=== PATIENT | female | born 1945 | race Caucasian/White ===

== ENCOUNTER 2023-05-19 09:12 | Inpatient (IN) | payer MEDICARE ==
[~2023-05-19] VITALS: Ht 167.7 cm; Wt 61.0 kg
[2023-05-19] VITALS (12 sets, daily range): BP systolic 86–155; BP diastolic 54–81
--- NOTE | 2023-05-19 09:22 | ED Lower Extremity ---
General Chief Complaint: Lower Extremity Stated Complaint: LT LEG PAIN Source: patient Exam Limitations: no limitations History of Present Illness Date Seen by Provider: May 19, 2023 Time Seen by Provider: 09:22 Initial Comments Patient is a 78-year-old female who presents to the emergency room with a chief complaint of left leg pain. She resides at a local snf, [facility]. She had a fall, apparently that was witnessed on Friday, 3 days ago. She is normally ambulatory without a walker. Since the fall she has not wanted to ambulate at all and has been in a wheelchair. She has been complaining of progressively worsening pain to the left hip. The patient has a history, likely due to her exam of some dementia. She is on olanzapine and sertraline. She cannot elucidate the details of the fall or if she has fallen anymore in the last 2 days. She denies chest pain, shortness of breath. She states she did not hit her head. She has no neck pain. She denies abdominal pain, nausea. She states the pain radiates into her buttocks. Denies numbness or tingling to the left leg. Onset: other (3d ago) Severity: moderate Pain/Injury Location: left hip Method of Injury: fell Modifying Factors: Improves With Immobilization; Worse With Movement Allergies and Home Medications Allergies Coded Allergies: hornet venom (Verified Allergy, Unknown, 05/19/23) mustard (Verified Allergy, Unknown, 05/19/23) yellow dye (Verified Allergy, Unknown, 05/19/23) Patient Home Medication List Home Medication List Reviewed: Yes Review of Systems Constitutional: see HPI EENTM: no symptoms reported Respiratory: no symptoms reported Cardiovascular: no symptoms reported Gastrointestinal: no symptoms reported Genitourinary: no symptoms reported Musculoskeletal: joint pain (left hip) Skin: no symptoms reported Psychiatric/Neurological: No Symptoms Reported All Other Systems Reviewed Negative Unless Noted: Yes Past Aygmjlb-Thzwir-Rbmdpl Hx Patient Social History Tobacco Use?: No Substance use?: No Alcohol Use?: No Physical Exam Vital Signs Vital Signs - First Documented 05/19/23 09:15 Temp 38.4 Pulse 107 B/P (MAP) 166/109 (128) Pulse Ox 94 O2 Delivery Room Air Capillary Refill : Height, Weight, BMI Height: '" Weight: lbs. oz. kg; BMI Method: General Appearance: WD/WN, no apparent distress HEENT: PERRL/EOMI, other (moist mucous membranes) Cardiovascular: regular rate, rhythm Respiratory: lungs clear, normal breath sounds, no respiratory distress, no accessory muscle use Gastrointestinal: normal bowel sounds, soft Hips: bilateral hip non-tender, bilateral hip normal inspection; right hip normal range of motion; bilateral hip bone tenderness; left hip limited range of motion, left hip pain Legs: bilateral leg non-tender, bilateral leg normal inspection, bilateral leg no evidence of injury Knees: bilateral knee non-tender, bilateral knee normal inspection, bilateral knee no evidence of injury Ankles: bilateral ankle non-tender, bilateral ankle normal inspection, bilateral ankle normal range of motion, bilateral ankle no evidence of injury Feet: bilateral foot non-tender, bilateral foot normal inspection, bilateral foot no evidence of injury Neurologic/Tendon: normal sensation, normal motor functions Neurologic/Psychiatric: alert, normal mood/affect Skin: normal color, warm/dry Progress/Results/Core Measures Results/Orders Lab Results Laboratory Tests Test 05/19/23 10:00 Range/Units White Blood Count 8.4 4.3-11.0 10^3/uL Red Blood Count 4.52 3.80-5.11 10^6/uL Hemoglobin 13.2 11.5-16.0 g/dL Hematocrit 40 35-52 % Mean Corpuscular Volume 89 80-99 fL Mean Corpuscular Hemoglobin 29 25-34 pg Mean Corpuscular Hemoglobin Concent 33 32-36 g/dL Red Cell Distribution Width 14.9 H 10.0-14.5 % Platelet Count 230 130-400 10^3/uL Mean Platelet Volume 10.0 9.0-12.2 fL Immature Granulocyte % (Auto) 1 % Neutrophils (%) (Auto) 72 42-75 % Lymphocytes (%) (Auto) 14 12-44 % Monocytes (%) (Auto) 11 0-12 % Eosinophils (%) (Auto) 2 0-10 % Basophils (%) (Auto) 0 0-10 % Neutrophils # (Auto) 6.1 1.8-7.8 10^3/uL Lymphocytes # (Auto) 1.2 1.0-4.0 10^3/uL Monocytes # (Auto) 0.9 0.0-1.0 10^3/uL Eosinophils # (Auto) 0.2 0.0-0.3 10^3/uL Basophils # (Auto) 0.0 0.0-0.1 10^3/uL Immature Granulocyte # (Auto) 0.0 0.0-0.1 10^3/uL Sodium Level 141 135-145 MMOL/L Potassium Level 3.4 L 3.6-5.0 MMOL/L Chloride Level 109 H 98-107 MMOL/L Carbon Dioxide Level 19 L 21-32 MMOL/L Anion Gap 13 5-14 MMOL/L Blood Urea Nitrogen 12 7-18 MG/DL Creatinine 0.75 0.60-1.30 MG/DL Estimat Glomerular Filtration Rate 81 BUN/Creatinine Ratio 16 Glucose Level 114 H 70-105 MG/DL Calcium Level 9.2 8.5-10.1 MG/DL My Orders Orders - JOSE TIDWELL MD Pelvis With Left Hip 2-3 Views (05/19/23 09:30) Ed Iv/Invasive Line Start (05/19/23 09:43) Cbc And Automated Diff (05/19/23 09:43) Basic Metabolic Panel (05/19/23 09:43) Chest 1 View, Ap/Pa Only (05/19/23 09:43) Ekg Tracing (05/19/23 09:43) Ed Admission (Communication) (05/19/23 11:06) Catheter(Urinary) Insert & Ass 03,15 (05/19/23 11:11) Vital Signs/I&O 05/19/23 05/19/23 09:15 11:05 Temp 38.4 Pulse 107 99 B/P (MAP) 166/109 (128) 155/92 Pulse Ox 94 96 O2 Delivery Room Air Room Air Progress Progress Note : Time: 11:09 Progress Note Patient seen and evaluated by me. Eval today includes physical exam, xrays of the pelvis and left hip. After identification of left femoral neck fracture - additionally basic labs- CBC, BMP ordered, with single view CXR and EKG ordered to assist in pre-operative evaluation. Pertinent physical exam findings - elderly female, pleasantly confused, with stable VS. Only significant finding - tenderness to palpation of left hip at about the greated trochanter with limited ROM as far as flexion at the hip koint - she did not tolerate this due to pain in the left hip. No obvious erythema, rashes, swelling noted to the left leg. Distal pulses and sensation intact to the LLE. ddx includes pelvic fracture/hip fracture Labs, imaging independently reviewed and interpreted by me. Patient had normal CBC, BMP pertinent for minimall low potassium at 3.4 with a low CO2 at 19 - otherwise WNL. Her EKG showed normal sinus rhythm without ST change. Pelvis and Left hip xrays - showed isolated left femoral neck fracture. Her CX was unremarkable. Case was discussed with Dr Woods (whom I initially thought was the patient's primary provider - who accepted patient for admission to the med/surg floor. I also discussed the case with Dr Yi on for Ortho surgery who will consult. I did also speak with the patient's niece who is her DPOA and lives in [place], [place]. 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 I explained that that would not be possible due to the distance of travel and lack of available resources to take an ambulance out of community health (with our limited EMS) as well as the patient was not a candidate for air travel. Her niece then inquired about the possibility of POV transport and I was emphatic that this would not be a safe option for transport. Her n iece then stated that she would travel to us. Initial ECG Impression Date: May 19, 2023 Initial ECG Impression Time: 10:12 Initial ECG Rate: 90 Initial ECG Rhythm: Normal Sinus Initial ECG Intervals: Normal Initial ECG Impression: Normal Diagnostic Imaging Diagonstic Imaging: Xray Comments Pelvis and left hip x-raysindependently reviewed and interpreted by me, left femoral neck fracture, nondisplaced Diagonstic Imaging: Xray Plain Films/CT/US/NM/MRI: chest Comments [facility] [place], [place] NAME: JACKI PEREZ [facility] REC#: [id number] PT STATUS: ADM IN : 1945 PHYSICIAN: JOSE TIDWELL MD ADMIT DATE: 05/19/23 Signed Date of Exam:05/19/23 CHEST 1 VIEW, AP/PA ONLY HISTORY: Hip fracture. Preoperative evaluation of cardiac and pulmonary structures prior to administration of anesthesia. COMPARISON: None TECHNIQUE: Frontal view of the chest. FINDINGS: Lung volumes are normal. No consolidation is seen. There is no pleural effusion or pneumothorax. The cardiac silhouette is normal in size. IMPRESSION:. No acute pulmonary abnormality. Dictated by: Dictated on workstation # [id number] Dict: 05/19/23 1016 Trans: 05/19/23 1307 CV [id number] Interpreted by: DANIEL DWYER MD Electronically signed by: DANIEL DWYER MD 05/19/23 1307 Departure Communication (Admissions) Time/Spoke to Admitting Phy: 10:[address] Woods - hospitalist, In patient to med surg; she will do que'd orders Time/Spoke to Consulting Phy: 11:[address] Yi - Orthopedics Impression Primary Impression: Fracture of femoral neck, left Qualified Codes: S72.002A - Fracture of unspecified part of neck of left femur, initial encounter for closed fracture Disposition: ADMITTED INPATIENT Condition: Stable Admissions Decision to Admit Reason: Admit from ER (Trauma) Decision to Admit/Date: May 19, 2023 Time/Decision to Admit Time: 11:08 Departure-Patient Inst. Referrals: NO,LOCAL PHYSICIAN (PCP/Family) Primary Care Physician JOSE TIDWELL MD May 19, 2023 09:22
[2023-05-19 10:10] LABS: BASOPHILS % (AUTO) 0 % (0-10); EOSINOPHILS # (AUTO) 0.2 10^3/uL (0.0-0.3); EOSINOPHILS % (AUTO) 2 % (0-10); HEMATOCRIT 40 % (35-52); HEMOGLOBIN 13.2 g/dL (11.5-16.0); LYMPHOCYTES # (AUTO) 1.2 10^3/uL (1.0-4.0); LYMPHOCYTES % (AUTO) 14 % (12-44); MEAN CORPUSCULAR HEMOGLOBIN 29 pg (25-34); MEAN CORPUSCULAR HGB CONC 33 g/dL (32-36); MEAN CORPUSCULAR VOLUME 89 fL (80-99); MONOCYTES # (AUTO) 0.9 10^3/uL (0.0-1.0); MONOCYTES % (AUTO) 11 % (0-12); NEUTROPHILS # (AUTO) 6.1 10^3/uL (1.8-7.8); NEUTROPHILS % (AUTO) 72 % (42-75); PLATELET COUNT 230 10^3/uL (130-400); WHITE BLOOD COUNT 8.4 10^3/uL (4.3-11.0)
--- NOTE | 2023-05-19 10:18 | Diagnostic Imaging Report ---
HISTORY: Hip fracture. Preoperative evaluation of cardiac and pulmonary structures prior to administration of anesthesia. COMPARISON: None TECHNIQUE: Frontal view of the chest. FINDINGS: Lung volumes are normal. No consolidation is seen. There is no pleural effusion or pneumothorax. The cardiac silhouette is normal in size. IMPRESSION:. No acute pulmonary abnormality. Dictated by: Dictated on workstation # [id number]
--- NOTE | 2023-05-19 10:19 | Diagnostic Imaging Report ---
HISTORY: Fall, left hip pain. TECHNIQUE: Frontal view of the pelvis. Frontal and lateral views of the left hip. COMPARISON: None. FINDINGS: There is a transverse fracture through the left femoral neck with superior, lateral, and mild anterior displacement. The femoral head is well aligned. No acute fracture is seen in the right hip. Bone density is diffusely low. No other fractures are seen. IMPRESSION: Moderately displaced left femoral neck fracture. Dictated by: Dictated on workstation # [id number]
[2023-05-19 10:24] LABS: POTASSIUM 3.4 MMOL/L (3.6-5.0)
[2023-05-19 10:25] LABS: CALCIUM 9.2 MG/DL (8.5-10.1)
[2023-05-19 10:30] LABS: CREATININE SERUM 0.75 MG/DL (0.60-1.30)
--- NOTE | 2023-05-19 10:32 | History & Physical ---
History of Present Illness HPI/Chief Complaint Chief complaint: Left hip fracture HPI: This is a 78-year-old female known to me from [facility] psych unit in 07/11 who [facility] who suffered a left hip fracture and a fall at home. She is n.p.o. and will have repair today. She reports no pain as long as she does not move. Source: patient, family Exam Limitations: no limitations Date Seen 05/19/23 Time Seen by a Provider: 10:00 Attending Physician Allison Woods DO PCP Admitting Physician: Attending Physician: Referring Physician Date of Admission Home Medications & Allergies Home Medications Reviewed patient Home Medication Reconciliation performed by pharmacy medication reconciliations certified bench jeweler technician and/or nursing. Patients Allergies have been reviewed. Allergies Allergies Coded Allergies hornet venom (Verified Allergy, Unknown, 05/19/23) mustard (Verified Allergy, Unknown, 05/19/23) yellow dye (Verified Allergy, Unknown, 05/19/23) Past Nlheugf-Rdyena-Mnedlm Hx Past Med/Social Hx: Reviewed Nursing Past Med/Soc Hx, Reviewed and Corrections made Patient Social History Marrital Status: single Employed/Student: retired Alcohol Use: Denies Use Smoking Status: Unknown if Ever Smoked Past Medical History Neurological: Dementia Psychosocial: Depression Review of Systems Constitutional: see HPI Musculoskeletal: joint pain Physical Exam Physical Exam Vital Signs Vital Signs - First Documented 05/19/23 05/19/23 09:15 11:35 Temp 38.4 Pulse 107 Resp 18 B/P (MAP) 166/109 (128) Pulse Ox 94 O2 Delivery Room Air Capillary Refill : Height, Weight, BMI Height: '" Weight: lbs. oz. kg; 22.00 BMI Method: General Appearance: No Apparent Distress, WD/WN, Chronically ill Respiratory: Lungs Clear, Normal Breath Sounds Cardiovascular: Regular Rate, Rhythm, No Edema Extremity: Normal Range of Motion (Except left leg) Neurologic/Psychiatric: Alert, Depressed Affect, Disoriented Results Results/Procedures Labs Laboratory Tests 05/19/23 10:00 Patient resulted labs reviewed. Assessment/Plan Admission Diagnosis Assessment: Left femur fracture Dementia Depression Advanced age Plan: Proceed on with femur fracture repair since benefits outweigh risks Admission Status: Inpatient Order (span 2 midnights) Reason for Inpatient Admission: Hip fracture ALLISON WOODS DO May 19, 2023 10:32
[2023-05-19] MEDS ORDERED: CALCIUM CARBONATE 500 MG CHEW TABLET PO PRN (12:30)
[2023-05-19] MEDS ORDERED: MELATONIN 3 MG TABLET PO PRN (12:30)
[2023-05-19] MEDS ORDERED: MILK OF MAGNESIA 400 MG/5 ML 30 ML UDC PO PRN (12:30)
[2023-05-19] MEDS ORDERED: BISACODYL 10 MG SUPPOSITORY PR PRN (12:30)
[2023-05-19] MEDS ORDERED: ANTACID SUSPENSION 30 ML UDC PO PRN (12:30)
[2023-05-19] MEDS ORDERED: ONDANSETRON 4 MG ORAL DISSOLVE TABLET PO PRN (12:30)
[2023-05-19] MEDS ORDERED: LACTULOSE SYRUP 10GM/15ML 30ML UDC PO PRN (12:30)
[2023-05-19] MEDS ORDERED: diphenhydrAMINE INJ 50 MG/ML VIAL IVP PRN (12:30)
[2023-05-19] MEDS ORDERED: hydrALAZINE INJECTION 20 MG/ML VIAL IV PRN (12:30)
[2023-05-19] MEDS ORDERED: LIDOCAINE UROJET 2% GEL 10 ML PKG TOP ONE (12:30)
[2023-05-19] MEDS ORDERED: ONDANSETRON INJECTION 4 MG/2 ML (SDV) IV PRN (12:30)
[2023-05-19] MEDS ORDERED: HYDROmorphone INJECTION 2 MG/ML VIAL IV PRN (12:30)
[2023-05-19] MEDS ORDERED: diphenhydrAMINE 25 MG TABLET PO PRN (12:30)
[2023-05-19] MEDS ORDERED: LACTATED RINGERS 1,000 ML 1,000 ML IV PRN (13:00)
[2023-05-19] MEDS ORDERED: ONDANSETRON INJECTION 4 MG/2 ML (SDV) ONE (13:20)
[2023-05-19] MEDS ORDERED: SEVOFLURANE (ULTANE) 15 ML INHAL SOLN ONE (13:20)
[2023-05-19] MEDS ORDERED: proPOfol INJECTION 200 MG/20 ML VIAL IV ONE (13:20)
[2023-05-19] MEDS ORDERED: fentaNYL INJECTION 100 MCG/2 ML VIAL ONE ×2 (13:20→15:01)
--- NOTE | 2023-05-19 13:26 | Consultation - Ortho ---
Consult - Ortho Subjective Date of Exam 05/19/23 Chief Complaint Left Hip Injury HPI/Events since last exam sustained fall last Friday, had been ambulatory prior to fall and then began using wheelchair, had increasing pain, brought to ER and eval demonstrated displaced femoral neck fracture, I was asked to treat the fracture Medical, Surgical History see admit Social History see admit Family History see admit Review of Systems - Allergies: Coded Allergies: hornet venom (Verified Allergy, Unknown, 05/19/23) mustard (Verified Allergy, Unknown, 05/19/23) yellow dye (Verified Allergy, Unknown, 05/19/23) Objective Exam Left Leg: shortened, externally rotated, sensation grossly intact to light touch, pulses palpable Vital Signs Vital Signs Date Time Temp Pulse Resp B/P (MAP) Pulse Ox O2 Delivery O2 Flow Rate FiO2 05/19/23 11:35 36.9 88 18 155/77 (103) Room Air 05/19/23 11:05 99 155/92 96 Room Air 05/19/23 09:15 38.4 107 166/109 (128) 94 Room Air Lab Results Laboratory Tests 05/19/23 10:00: White Blood Count 8.4, Red Blood Count 4.52, Hemoglobin 13.2, Hematocrit 40, Mean Corpuscular Volume 89, Mean Corpuscular Hemoglobin 29, Mean Corpuscular Hemoglobin Concent 33, Red Cell Distribution Width 14.9H, Platelet Count 230, Mean Platelet Volume 10.0, Immature Granulocyte % (Auto) 1, Neutrophils (%) (Auto) 72, Lymphocytes (%) (Auto) 14, Monocytes (%) (Auto) 11, Eosinophils (%) (Auto) 2, Basophils (%) (Auto) 0, Neutrophils # (Auto) 6.1, Lymphocytes # (Auto) 1.2, Monocytes # (Auto) 0.9, Eosinophils # (Auto) 0.2, Basophils # (Auto) 0.0, Immature Granulocyte # (Auto) 0.0, Sodium Level 141, Potassium Level 3.4L, Chloride Level 109H, Carbon Dioxide Level 19L, Anion Gap 13, Blood Urea Nitrogen 12, Creatinine 0.75, Estimat Glomerular Filtration Rate 81, BUN/Creatinine Ratio 16, Glucose Level 114H, Calcium Level 9.2 Assessment and Plan Assessment Displaced Left Femoral Neck Fracture Problem List Displaced Left Femoral Neck Fracture Plan I have recommended proceeding with prosthetic replacement of the left femoral neck fracture. Nature of the procedure and the postoperative course were discussed with DPOA and son. Questions were answered and consent was obtained. Will plan to proceed today. Final Diagonsis Displaced Left Femoral Neck Fracture Level of the visit: Level 3 CAROLINA MATHUR MD May 19, 2023 13:26
[2023-05-19] MEDS ORDERED: ceFAZolin INJECTION 2,000 MG ONE (13:27)
[2023-05-19] MEDS ORDERED: ceFAZolin 1,000 MG VIAL IV ONE (13:30)
[2023-05-19] MEDS ORDERED: TRANEXAMIC ACID 100 MG/ML 10 ML INJECTION ONE (13:45)
[2023-05-19] MEDS ORDERED: ceFAZolin INJECTION 2,000 MG in NS (IVPB) 50 ML 50 ML IV NR (14:00)
--- NOTE | 2023-05-19 15:31 | Operative Report - Ortho ---
Operative Report Surgeon (s)/Quality Control Representative (s) Surgeon CAROLINA MATHUR MD Quality Control Representative n/a Pre-Operative Diagnosis Displaced Left Femoral Neck Fracture Post-Operative Diagnosis same Operative Report Date of Procedure: May 19, 2023 Name of Procedure Performed: Prosthetic Replacement of Left Femoral Neck Fracture Description & Findings After obtaining informed consent and marking the patient, patient did receive IV antibiotics. Patient was taken to the operating room and anesthesia was induced. Patient was placed in the lateral decubitus position with the left side up. Left lower extremity was prepped and draped in the usual sterile fashion. Surgical timeout was taken. A posterolateral approach was utilized. External rotators and capsule were taken down in one layer. Fracture hematoma was evacuated. Femoral head was removed from the acetabulum and sized. The fracture site on the femoral neck was freshened with a saw. A 43 mm bipolar component was trialed and found to have good fit. Attention was turned to the femur, Cashier Live cutter osteotome was used to remove the remainder of the femoral neck near the greater trochanter. Canal finder was inserted followed by the lateralizing reamer. Sequential broaching was began with a 2 and broaching to a 5. The 5 had good metaphyseal fit and fill. A -4 head and a 43 mm bipolar component were put on a 127 neck trial. This was located. Found to have grossly equal leg lengths. Stable in position of sleep and flexion with internal rotation this was accepted. Hip was atraumatically dislocated and the trial components were removed. The femoral canal and acetabulum were irrigated with pulsatile lavage. Femoral canal was prepared for cementing. Cement was mixed. Cement was placed in the femoral canal and pressurized. A size 5 Accolade C stem with a 127 neck was inserted and seated at similar level to the broach. The cement was allowed to set. A -4 head was impacted onto the Razo taper of the stem. A 43 mm bipolar component was placed. Hip was located and once again found to be stable. Irrisept soak was performed; further irriga tion was performed. The fascial layer was closed with #2 Stratafix. The subcutaneous layer was closed with 2-0 vicryl and the skin was closed with thuan. Incision site was dressed with xeroform, 4x4s, ABD, and tape. Patient was placed in abduction pillow postoperatively and was transferred to hospital bed without incident. Tolerated the procedure well and was stable to recovery room. Anesthesia Type General Estimated Blood Loss ~250 mL Specimen(s) collected/removed None CAROLINA MATHUR MD May 19, 2023 15:31
[2023-05-19] MEDS ORDERED: ceFAZolin INJECTION 2,000 MG in NS (IVPB) 50 ML 50 ML IV SCH (15:45)
[2023-05-19] MEDS ORDERED: RT-ALBUTEROL SULF 2.5 MG/3 ML PRE-MIX VIAL INH PRN (16:00)
--- NOTE | 2023-05-19 16:23 | Diagnostic Imaging Report ---
INDICATION: Left femoral fracture. FINDINGS: AP view of the pelvis is obtained. Since the study of earlier in the day, there has been resection of the fractured left femoral head and neck with placement of hemiarthroplasty device. This is in good position without evidence of complication. Otherwise, no acute fracture or malalignment is seen. IMPRESSION: No acute abnormality or complication post left hip hemiarthroplasty. Dictated by: Dictated on workstation # [id number]
[2023-05-19] MEDS: NS IV 1000 ML 1,000 ML IV SCH ×2 (16:41→20:32)
[2023-05-19] MEDS: DOCUSATE SODIUM 100 MG CAPSULE PO SCH (20:28)
[2023-05-19] MEDS: SENNOSIDES 8.6 MG TABLET PO SCH (20:28)
[2023-05-19] MEDS: ceFAZolin INJECTION 2,000 MG in NS (IVPB) 50 ML 50 ML IV SCH (20:31)
[2023-05-19] MEDS ORDERED: RT-ALBUTEROL SULF 2.5 MG/3 ML PRE-MIX VIAL INH SCH (21:00)
[2023-05-20] MEDS: oxyCODONE IMMEDIATE RELEASE 5 MG TABLET PO PRN ×4 (00:13→19:33)
[2023-05-20 03:34] VITALS: BP 130/73
[2023-05-20] MEDS: ceFAZolin INJECTION 2,000 MG in NS (IVPB) 50 ML 50 ML IV SCH (04:47)
[2023-05-20 05:49] LABS: BASOPHILS % (AUTO) 0 % (0-10); EOSINOPHILS # (AUTO) 0.1 10^3/uL (0.0-0.3); EOSINOPHILS % (AUTO) 1 % (0-10); HEMATOCRIT 32 % (35-52); HEMOGLOBIN 10.7 g/dL (11.5-16.0); LYMPHOCYTES # (AUTO) 0.8 10^3/uL (1.0-4.0); LYMPHOCYTES % (AUTO) 8 % (12-44); MEAN CORPUSCULAR HEMOGLOBIN 29 pg (25-34); MEAN CORPUSCULAR HGB CONC 33 g/dL (32-36); MEAN CORPUSCULAR VOLUME 88 fL (80-99); MEAN PLATELET VOLUME 10.6 fL (9.0-12.2); MONOCYTES # (AUTO) 1.1 10^3/uL (0.0-1.0); MONOCYTES % (AUTO) 11 % (0-12); NEUTROPHILS # (AUTO) 8.2 10^3/uL (1.8-7.8); NEUTROPHILS % (AUTO) 79 % (42-75); PLATELET COUNT 176 10^3/uL (130-400); WHITE BLOOD COUNT 10.3 10^3/uL (4.3-11.0)
[2023-05-20 06:20] LABS: ALBUMIN 2.9 GM/DL (3.2-4.5); BILIRUBIN,TOTAL 0.7 MG/DL (0.1-1.0); CALCIUM 8.3 MG/DL (8.5-10.1); CREATININE SERUM 0.76 MG/DL (0.60-1.30); POTASSIUM 4.3 MMOL/L (3.6-5.0); TOTAL PROTEIN 5.9 GM/DL (6.4-8.2)
[2023-05-20 06:30] LABS: BASOPHILS % (MANUAL) 1 %; EOSINOPHILS % (MANUAL) 2 %; LYMPHOCYTES % (MANUAL) 8 %; MONOCYTES % (MANUAL) 5 %; NEUTROPHILS % (MANUAL) 84 %
[2023-05-20 06:31] LABS: RBC MORPH NORMAL
--- NOTE | 2023-05-20 07:00 | Anesthesia-General Post-Op ---
General Patient Condition Mental Status/LOC: Same as Preop Cardiovascular: Satisfactory Nausea/Vomiting: Absent Respiratory: Satisfactory Pain: Controlled Complications: Absent Post Op Complications Complications None Follow Up Care/Instructions Patient Instructions None needed. Anesthesia/Patient Condition Patient Condition Patient is doing well, no complaints, stable vital signs, no apparent adverse anesthesia problems. No complications reported per nursing. MARIZA ABRAHAM CRNA May 20, 2023 07:00
[2023-05-20 07:22] VITALS: BP 148/84
[2023-05-20] MEDS: ACETAMINOPHEN 325 MG TABLET PO PRN (07:48)
[2023-05-20] MEDS: SENNOSIDES 8.6 MG TABLET PO SCH ×2 (07:49→19:34)
[2023-05-20] MEDS: DOCUSATE SODIUM 100 MG CAPSULE PO SCH ×2 (07:49→19:33)
[2023-05-20] MEDS: NS IV 1000 ML 1,000 ML IV SCH (08:01)
--- NOTE | 2023-05-20 09:34 | Progress Note - Ortho ---
Progress Note Subjective Date of Exam 05/20/23 Chief Complaint POD #1 Prosthetic Replacement of Left Femoral Neck Fx HPI/Events since last exam better this AM, still with some ongoing pain Review of Systems - Allergies: Coded Allergies: hornet venom (Verified Allergy, Unknown, 05/19/23) mustard (Verified Allergy, Unknown, 05/19/23) yellow dye (Verified Allergy, Unknown, 05/19/23) Objective Exam Left Hip: Dressing C/D/I, +DF of ankle, no s/s of DVT Vital Signs Vital Signs Date Time Temp Pulse Resp B/P (MAP) Pulse Ox O2 Delivery O2 Flow Rate FiO2 05/20/23 07:22 37.5 116 16 148/84 (105) 92 Nasal Cannula 2.00 05/20/23 03:34 36.4 109 18 130/73 (92) 94 Nasal Cannula 2.00 2.00 05/19/23 23:29 36.9 108 18 141/76 (97) 92 Nasal Cannula 2.00 2.00 05/19/23 21:07 95 Room Air 05/19/23 20:28 36.6 102 18 138/81 (100) 93 Room Air 05/19/23 20:00 Room Air 05/19/23 16:22 36.6 95 17 121/74 (90) 94 Nasal Cannula 2.00 05/19/23 16:10 Nasal Cannula 2.00 05/19/23 16:10 36.5 18 128/78 (95) 95 Nasal Cannula 2.00 05/19/23 16:00 18 125/76 (92) 94 Nasal Cannula 2.00 05/19/23 15:59 Nasal Cannula 2.00 05/19/23 15:53 OxyMask 3.00 05/19/23 15:50 20 125/79 (94) 100 OxyMask 6.00 05/19/23 15:49 36.3 88 94 05/19/23 15:49 OxyMask 6.00 05/19/23 15:42 OxyMask 6.00 05/19/23 15:40 18 122/78 (93) 94 OxyMask 6.00 05/19/23 15:37 OxyMask 6.00 05/19/23 15:30 18 102/61 (75) 97 OxyMask 6.00 05/19/23 15:30 OxyMask 6.00 05/19/23 15:27 18 91/54 (66) 94 OxyMask 6.00 05/19/23 15:21 OxyMask 6.00 05/19/23 15:21 36.3 16 86/54 (65) 96 OxyMask 6.00 05/19/23 14:34 94 Room Air 05/19/23 11:35 36.9 88 18 155/77 (103) Room Air 05/19/23 11:05 99 155/92 96 Room Air I & O 05/20/23 07:00 Intake Total 2650 ml Output Total 750 ml Balance 1900 ml Lab Results Laboratory Tests 05/19/23 10:00: White Blood Count 8.4, Red Blood Count 4.52, Hemoglobin 13.2, Hematocrit 40, Mean Corpuscular Volume 89, Mean Corpuscular Hemoglobin 29, Mean Corpuscular Hemoglobin Concent 33, Red Cell Distribution Width 14.9H, Platelet Count 230, Mean Platelet Volume 10.0, Immature Granulocyte % (Auto) 1, Neutrophils (%) (Auto) 72, Lymphocytes (%) (Auto) 14, Monocytes (%) (Auto) 11, Eosinophils (%) (Auto) 2, Basophils (%) (Auto) 0, Neutrophils # (Auto) 6.1, Lymphocytes # (Auto) 1.2, Monocytes # (Auto) 0.9, Eosinophils # (Auto) 0.2, Basophils # (Auto) 0.0, Immature Granulocyte # (Auto) 0.0, Sodium Level 141, Potassium Level 3.4L, Chloride Level 109H, Carbon Dioxide Level 19L, Anion Gap 13, Blood Urea Nitrogen 12, Creatinine 0.75, Estimat Glomerular Filtration Rate 81, BUN/Creatinine Ratio 16, Glucose Level 114H, Calcium Level 9.2 05/20/23 05:29: White Blood Count 10.3, Red Blood Count 3.67L, Hemoglobin 10.7L, Hematocrit 32L, Mean Corpuscular Volume 88, Mean Corpuscular Hemoglobin 29, Mean Corpuscular Hemoglobin Concent 33, Red Cell Distribution Width 14.8H, Platelet Count 176, Mean Platelet Volume 10.6, Immature Granulocyte % (Auto) 0, Neutrophils (%) (Auto) 79H, Lymphocytes (%) (Auto) 8L, Monocytes (%) (Auto) 11, Eosinophils (%) (Auto) 1, Basophils (%) (Auto) 0, Neutrophils # (Auto) 8.2H, Lymphocytes # (Auto) 0.8L, Monocytes # (Auto) 1.1H, Eosinophils # (Auto) 0.1, Basophils # (Auto) 0.0, Immature Granulocyte # (Auto) 0.0, Sodium Level 137, Potassium Level 4.3, Chloride Level 108H, Carbon Dioxide Level 20L, Anion Gap 9, Blood Urea Nitrogen 12, Creatinine 0.76, Estimat Glomerular Filtration Rate 80, BUN/Creatinine Ratio 16, Glucose Level 132H, Calcium Level 8.3L, Neutrophils % (Manual) 84, Lymphocytes % (Manual) 8, Monocytes % (Manual) 5, Eosinophils % (Manual) 2, Basophils % (Manual) 1, Blood Morphology Comment NORMAL, Corrected Calcium 9.2, Total Bilirubin 0.7, Aspartate Amino Transf (AST/SGOT) 30, Alanine Aminotransferase (ALT/SGPT) 23, Alkaline Phosphatase 80, Total Protein 5.9L, Albumin 2.9L Imaging AP Pelvis dated 05/19/23 was reviewed from PACS and demonstrated left hip hemiarthroplasty with components in good position Assessment and Plan Assessment Left Femoral Neck Fx s/p Prosthetic Replacement Problem List Left Femoral Neck Fx s/p Prosthetic Replacement Plan PT/OT Extended care prior to return to living situation DVT Prophylaxis Final Diagonsis Left Femoral Neck Fx s/p Prosthetic Replacement Level of the visit: Level 3 (global) Clinical Quality Measures DVT/VTE Risk/Contraindication: Contraindications-Pharm: Other *list below* Other: or CAROLINA MATHUR MD May 20, 2023 09:34
--- NOTE | 2023-05-20 10:20 | Progress Note ---
MISA PATEL 05/20/23 1020: Subjective Subjective/Events-last exam CC: Left hip pain HPI: Ms. Alonso is s/p L hemiarthroplasty 05/19/23. She has a history of dementia, but is doing well this morning. She denies any SOB or chest pain. Macias catheter is in place. She has not had a bowel movement since surgery. She rates her hip pain as 7/10 this morning. Objective Exam Last Set of Vital Signs Vital Signs Date Time Temp Pulse Resp B/P (MAP) Pulse Ox O2 Delivery O2 Flow Rate FiO2 05/20/23 08:00 Room Air 05/20/23 07:22 37.5 116 16 148/84 (105) 92 2.00 Capillary Refill : Less Than 3 Seconds I&O Intake and Output 05/20/23 00:00 Intake Total 2400 ml Output Total 550 ml Balance 1850 ml Intake Oral 400 ml IV Total 2000 ml Output Urine Total 550 ml Daily Weight Change No General: Alert, Oriented X3, Cooperative HEENT: Atraumatic Neck: Supple Lungs: Clear to Auscultation Heart: Regular Rate Abdomen: Normal Bowel Sounds, No Tenderness Extremities: No Clubbing, No Edema, Normal Pulses Neuro: Normal Speech Results Lab Laboratory Tests 05/20/23 05:29: White Blood Count 10.3, Red Blood Count 3.67L, Hemoglobin 10.7L, Hematocrit 32L, Mean Corpuscular Volume 88, Mean Corpuscular Hemoglobin 29, Mean Corpuscular Hemoglobin Concent 33, Red Cell Distribution Width 14.8H, Platelet Count 176, Mean Platelet Volume 10.6, Immature Granulocyte % (Auto) 0, Neutrophils (%) (Auto) 79H, Lymphocytes (%) (Auto) 8L, Monocytes (%) (Auto) 11, Eosinophils (%) (Auto) 1, Basophils (%) (Auto) 0, Neutrophils # (Auto) 8.2H, Lymphocytes # (Auto) 0.8L, Monocytes # (Auto) 1.1H, Eosinophils # (Auto) 0.1, Basophils # (Auto) 0.0, Immature Granulocyte # (Auto) 0.0, Neutrophils % (Manual) 84, Lymphocytes % (Manual) 8, Monocytes % (Manual) 5, Eosinophils % (Manual) 2, Basophils % (Manual) 1, Blood Morphology Comment NORMAL, Sodium Level 137, Potassium Level 4.3, Chloride Level 108H, Carbon Dioxide Level 20L, Anion Gap 9, Blood Urea Nitrogen 12, Creatinine 0.76, Estimat Glomerular Filtration Rate 80, BUN/Creatinine Ratio 16, Glucose Level 132H, Calcium Level 8.3L, Corrected Calcium 9.2, Total Bilirubin 0.7, Aspartate Amino Transf (AST/SGOT) 30, Alanine Aminotransferase (ALT/SGPT) 23, Alkaline Phosphatase 80, Total Protein 5.9L, Albumin 2.9L Assessment/Plan Assessment/Plan Assess & Plan/Chief Complaint Assessment: Ms. Alonso is a 78 y/o female with left hip pain s/p hemiarthroplasty 05/19/23. Plan: Hip Pain -s/p hemiarthroplasty 05/19/23 -continue pain meds prn -Dr. Yi managing hip Dementia -supportive measures -monitor for changes in mental state Clinical Quality Measures DVT/VTE Risk/Contraindication: Contraindications-Pharm: Other *list below* Other: or ALLISON SEBASTIAN DO 05/21/23 0451: Subjective Date Seen by a Provider: May 20, 2023 Time Seen by a Provider: 10:00 Subjective/Events-last exam Much improved Labs reviewed Macias in place Family at bedside Needs OR Objective Exam General: Alert Lungs: Clear to Auscultation Heart: Regular Rate Assessment/Plan Assessment/Plan Assess & Plan/Chief Complaint Dementia Hip fx Needs OR Supervisory-Addendum Brief Verification & Attestation Participated in pt care: history, MDM, physical Personally performed: exam, history, MDM, supervision of care Care discussed with: Medical Student Procedures: n/a Results interpretation: Verified all documentation Verification and Attestation of Medical Student E/M Service A medical student performed and documented this service in my presence. I reviewed and verified all information documented by the medical student and made modifications to such information, when appropriate. I personally performed the physical exam and medical decision making. Allison Sebastian, May 21, 2023,04:50 MISA PATEL May 20, 2023 10:20 ALLISON SEBASTIAN DO May 21, 2023 04:51
[2023-05-20 11:22] VITALS: BP 138/77
--- NOTE | 2023-05-20 11:46 | Occupational Therapy Eval ---
OT Evaluation-General/PLF Medical Diagnosis Admission Date May 19, 2023 at 11:17 Medical Diagnosis: Prosthetic Replacement of Left Femoral Neck Fx Onset Date: May 19, 2023 Therapy Diagnosis Therapy Diagnosis: WEAKNESS, CONFUSION Precautions Precautions/Isolations: Standard Precautions Weight Bear Status Weight Bearing Restriction: Full Weight Bearing Location Restriction: L LE Referral Referral Reason: Evaluation/Treatment Medical History Pertinent Medical History: Dementia Current History HIP PRECAUTIONS Reviewed History: Yes Social History Home: [facility] ([facility]) Entry Into Home: Level Entry ADL-Prior Level of Function SCALE: Activities may be completed with or without assistive devices. 2-Xjqojrbvly-syyotbl completes the activity by him/herself with no assistance from a helper. 5-Set-up or Clean-up Assistance-helper sets up or cleans up; patient completes activity. [place] assists only prior to or following the activity. 4-Supervision or Touching Assistance-helper provides verbal cues and/or touching/steadying and/or contact guard assistance as patient completes activity. Assistance may be provided throughout the activity or intermittently. 3-Partial/Moderate Assistance-helper does LESS THAN HALF the effort. [place] lifts, holds or supports trunk or limbs, but provides less than half the effort. 2-Substantial/Maximal Assistance-helper does MORE THAN HALF the effort. [place] lifts or holds trunk or limbs and provides more than half the effort. 5-Tuhdzqrqj-bvjboe does ALL the effort. Patient does none of the effort to complete the activity. Or, the assistance of 2 or more helpers is required for the patient to complete the activity. If activity was not attempted, code reason: 7-Patient Refused. 9-Not Applicable-not attempted and the patient did not perform the activity before the current illness, exacerbation or injury. 10-Not Attempted due to Environmental Limitations-(lack of equipment, weather restraints, etc.). 88-Not Attempted due to Medical Conditions or Safety Concerns. Self Care: Needed Some Help Functional Cognition: Needed Some Help Drive Self: No OT Current Status Subjective CONFUSION, EXTREMELY SOFT VOLUME VOICE WHEN ANSWERING QUESTION, GRANDDAUGHTER/DPOA PROVIDED INFORMATION Pain Numeric Pain Scale: 8 Mental Status/Objective Patient Orientation: Non-Verbal/Aphasic Attachments: Macias Catheter Current Glasses/Contacts: No Upper Extremity ROM UNABLE TO DETERMINE AROM, PROM WFL. PATIENT DOES NOT FOLLOW INSTRUCTION Upper Extremity Coordination IMPAIRED Upper Extremity Sensation NA Upper Extremity Strength UNABLE TO ACCESS, DOES NOT FOLLOW INSTRUCTION ADL-Treatment Eating (QC): 4 (GRAND-DAUGHTER ASSISTING) Oral Hygiene (QC): 4 Shower/Bathe Self (QC): 88 Upper Body Dressing (QC): 2 Lower Body Dressing (QC): 1 On/Off Footwear (QC): 1 Toileting Hygiene (QC): 1 PLEASE USE PAM PRECAUTIONS Education OT Patient Education: Correct positioning, Instructions to caregiver, Modified ADL techniques, Progress toward Goal/Update tx plan, Purpose of tx/functional activities, Reviewed precautions, Rehab process, Safety issues, Transfer techniques, Use of adapted equipment Teaching Recipient: Patient (DOES NOT COMPREHEND), Family Teaching Methods: Demonstration, Discussion Response to Teaching: Unable to Comprehend OT Custodial Goals Investor Relations Coordinator Goals Eating (QC): 5 Oral Hygiene (QC): 5 Toileting Hygiene (QC): 3 Shower/Bathe Self (QC): 3 Upper Body Dressing (QC): 3 Lower Body Dressing (QC): 3 On/Off Footwear (QC): 3 1=Demonstrate adherence to instructed precautions during ADL tasks. 2=Patient will verbalize/demonstrate understanding of assistive devices/modifications for ADL. 3=Patient will improve strength/tolerance for activity to enable patient to perform ADL's. OT Education/Plan Problem List/Assessment Assessment: Decreased Activ Tolerance, Decreased Safety Aware, Decreased UE Strength, Dependent Transfers, Impaired Bed Mobility, Impaired Cognition, Impaired Coordination, Impaired Self-Care Skills Discharge Recommendations Plan/Recommendations: Continue POC Therapy Discharge Recommendati: Post Acute OT Comment PATIENT WILL NOT LIKE RECALL PAM PRECAUTIONS OF NEED FOR HIP KIT Barriers to Progress DEMENTIA Treatment Plan/Plan of Care Treatment,Training & Education: Yes Patient would benefit from OT for education, treatment and training to promote independence in ADL's, mobility, safety and/or upper extremity function for ADL's. Plan of Care: ADL Retraining, Cognitive Retraining, Concurrent Therapy, Functi onal Mobility, Group Exercise/Act as Ind, UE Funct Exercise/Act, UE Neuromus Re- Ed/Coord Treatment Duration: May 30, 2023 Frequency: 3 times per week (3-5 TIMES PER WEEK) Estimated Hrs Per Day: .25 hour per day Agreement: Yes Rehab Potential: Poor Time Start Time: 10:20 Stop Time: : DATE: May 20, 2023 Total Time Billed (hr/min): 11 Billed Treatment Time EVH 11 MIN ABA DONALD OT May 20, 2023 11:46
--- NOTE | 2023-05-20 14:03 | Physical Therapy Evaluation ---
PT Evaluation-General Medical Diagnosis Admission Date May 19, 2023 at 11:17 Medical Diagnosis: Prosthetic Replacement of Left Femoral Neck Fx Onset Date: May 19, 2023 Therapy Diagnosis Therapy Diagnosis: Gait deficit Precautions Precautions/Isolations: Fall Prevention, Standard Precautions Posterior hip precautions. Weight Bear Status Right Lower Extremity: Right Full Weight Bearing Left Lower Extremity: Left Weight Bearing/Tolerated Posterior Dislocation Precautions Referral Physician: Dr. Yi Reason for Referral: Evaluation/Treatment Medical History Pertinent Medical History: Dementia Reviewed History: Yes Social History Home: [facility] ([facility]) Entry Into Home: Level Entry Prior Prior Level of Function SCALE: Activities may be completed with or without assistive devices. 0-Zquwjjlmrv-gkzcidz completes the activity by him/herself with no assistance from a helper. 5-Set-up or Clean-up Assistance-helper sets up or cleans up; patient completes activity. [place] assists only prior to or following the activity. 4-Supervision or Touching Assistance-helper provides verbal cues and/or touching/steadying and/or contact guard assistance as patient completes activity. Assistance may be provided throughout the activity or intermittently. 3-Partial/Moderate Assistance-helper does LESS THAN HALF the effort. [place] lifts, holds or supports trunk or limbs, but provides less than half the effort. 2-Substantial/Maximal Assistance-helper does MORE THAN HALF the effort. [place] lifts or holds trunk or limbs and provides more than half the effort. 7-Soipqjout-zhwbrl does ALL the effort. Patient does none of the effort to complete the activity. Or, the assistance of 2 or more helpers is required for the patient to complete the activity. If activity was not attempted, code reason: 7-Patient Refused. 9-Not Applicable-not attempted and the patient did not perform the activity before the current illness, exacerbation or injury. 10-Not Attempted due to Environmental Limitations-(lack of equipment, weather restraints, etc.). 88-Not Attempted due to Medical Conditions or Safety Concerns. Bed Mobility: 6 Transfers (B,C,W/C): 6 Gait: 6 Indoor Mobility (Ambulation): Independent Stairs: Not Applicalbe PT Evaluation-Current Subjective Patient lying supine in bed upon PT arrival, agreeable to treatment. Objective Patient Orientation: Person ROM/Strength ROM Lower Extremities Left LE limited all planes due to pain. Right LE WFLs all planes Strength Lower Extremities Patient unable to follow commands for MMT, however demonstrates Left LE limited all planes due to pain. Right LE 3+/5 all planes via observation Sensory Vision: Functional Hearing: Functional Sensation Right Lower Extremit: Intact Sensation Left Lower Extremity: Intact Transfers Roll Left to Right (QC): 2 Sit to Lying (QC): 2 Lying to Sitting/Side of Bed(Q: 2 Sit to Stand (QC): 2 Chair/Tng-jd-Lrhnp Xfer(QC): 2 Gait Does the Patient Walk?: No and Walking Goal IS indicated Mode of Locomotion: Both Anticipated Mode of Locomotion: Both Balance Sitting Static: Poor Sitting Dynamic: Poor Standing Static: Poor Standing Dynamic: Poor Assessment/Needs Patient declined cognition at baseline. Patient requires max A for all observed bed mobility and transfers. Patient able to stand using the FWW, but only for a few seconds. Patient requires max/total A for SPT to the chair. Patient in chair post treatment with all needs met, nursing notified, call light in hand and family in the room, chair alarm activated. Rehab Potential: Poor Equipment Needs FWW, W/C PT Alf Goals Alf Goals PT Global Process Owner Goals Time Frame: Jun 14, 2023 Roll Left & Right (QC): 4 Sit to Lying (QC): 4 Lying-Sitting on Side/Bed(QC): 4 Sit to Stand (QC): 4 Chair/Moz-vy-Qhkcw Xfer(QC): 4 Toilet Transfer (QC): 4 Does the Patient Walk: Yes Walk 10 feet (QC): 4 Walk 50ft with 2 Turns (QC): 4 Walk 150 ft (QC): 4 PT Plan Problem List Problem List: Activity Tolerance, Functional Strength, Safety, Balance, Gait, Transfer, Bed Mobility, ROM Treatment/Plan Treatment Plan: Continue Plan of Care Treatment Plan: Bed Mobility, Education, Functional Activity Apple, Functional Strength, Group Therapy, Gait, Safety Treatment Duration: Jun 19, 2023 Frequency: 11 times per week Estimated Hrs Per Day: .25 hour per day Patient and/or Family Agrees t: Yes Safety Risks/Education Patient Education: Gait Training, Transfer Techniques Teaching Recipient: Patient, Family Teaching Methods: Demonstration, Discussion Response to Teaching: Reinforcement Needed Time Time In: 855 Time Out: 920 DATE: May 20, 2023 Total Billed Treatment Time: 25 Total Billed Treatment Visit, BRENDON GUIDRY JOHN A PT May 20, 2023 14:03
[2023-05-20] MEDS ORDERED: OLN5T PO (14:06)
[2023-05-20] MEDS ORDERED: SERT-413 PO (14:06)
[2023-05-20] MEDS ORDERED: ACET-2267 PO (14:06)
[2023-05-20] MEDS ORDERED: LACT10SO3 PO (14:06)
--- NOTE | 2023-05-20 14:10 | Physical Therapy Daily Note ---
PT Daily Note-Current Pain Section J - Health Conditions 1. Rarely or not at all 2. Occasionally 3. Frequently 4. Almost constantly 8. Unable to answer Pain Effect on Sleep: 8 Pain Interference with Therapy: 8 Pain Interference w/Day-to-Day: 8 Transfers SCALE: Activities may be completed with or without assistive devices. 2-Kxejrgnzjm-nkfjmhi completes the activity by him/herself with no assistance from a helper. 5-Set-up or Clean-up Assistance-helper sets up or cleans up; patient completes activity. [place] assists only prior to or following the activity. 4-Supervision or Touching Assistance-helper provides verbal cues and/or touching/steadying and/or contact guard assistance as patient completes activity. Assistance may be provided throughout the activity or intermittently. 3-Partial/Moderate Assistance-helper does LESS THAN HALF the effort. [place] lifts, holds or supports trunk or limbs, but provides less than half the effort. 2-Substantial/Maximal Assistance-helper does MORE THAN HALF the effort. [place] lifts or holds trunk or limbs and provides more than half the effort. 4-Qoizqjcxr-bjnnfa does ALL the effort. Patient does none of the effort to complete the activity. Or, the assistance of 2 or more helpers is required for the patient to complete the activity. If activity was not attempted, code reason: 7-Patient Refused. 9-Not Applicable-not attempted and the patient did not perform the activity before the current illness, exacerbation or injury. 10-Not Attempted due to Environmental Limitations-(lack of equipment, weather restraints, etc.). 88-Not Attempted due to Medical Conditions or Safety Concerns. Weight Bearing Right Lower Extremity: Right Full Weight Bearing Left Lower Extremity: Left Weight Bearing/Tolerated Posterior Dislocation Precautions Assessment Patient requires max A for all observed bed mobility and transfers. Patient requires max/total A for SPT to the bed Patient in bed post treatment with all needs met, nursing notified, call light in hand and family in the room, bed alarm activated. PT Bed Operator Goals Bed Operator Goals PT Halfway Goals Time Frame: Jun 14, 2023 Roll Left & Right (QC): 4 Sit to Lying (QC): 4 Lying-Sitting on Side/Bed(QC): 4 Sit to Stand (QC): 4 Chair/Ils-vt-Neodw Xfer(QC): 4 Toilet Transfer (QC): 4 Does the Patient Walk: Yes Walk 10 feet (QC): 4 Walk 50ft with 2 Turns (QC): 4 Walk 150 ft (QC): 4 PT Plan Treatment/Plan Treatment Plan: Continue Plan of Care Treatment Plan: Bed Mobility, Education, Functional Activity Apple, Functional Strength, Group Therapy, Gait, Safety Treatment Duration: Jun 19, 2023 Frequency: 11 times per week Estimated Hrs Per Day: .25 hour per day Patient and/or Family Agrees t: Yes Safety Risks/Education Patient Education: Transfer Techniques Teaching Recipient: Patient Teaching Methods: Demonstration, Discussion Response to Teaching: Reinforcement Needed Time Time In: 1344 Time Out: 1400 DATE: May 20, 2023 Total Billed Treatment Time: 16 Total Billed Treatment Visit, ERIN SINGH PT May 20, 2023 14:10
--- NOTE | 2023-05-20 14:11 | Anesthesia-Procedure Note ---
Procedures/Interventions Procedure Start/Stop/Diagnosis Date of Procedure: May 20, 2023 Start Time: 13:56 Stop Time: 14:08 Central Line/IV Access IV : Location: Left Site: Wrist IV Catheter Type: Peripheral IV IV Catheter Gauge: 24 MARIZA ABRAHAM CRNA May 20, 2023 14:11
[2023-05-20 16:24] VITALS: BP 131/81
[2023-05-20 19:29] VITALS: BP 130/72
[2023-05-20] MEDS: APIXABAN 2.5 MG TABLET PO SCH (19:34)
[2023-05-20 23:26] VITALS: BP 139/87
[2023-05-21] MEDS: NS IV 1000 ML 1,000 ML IV SCH ×2 (00:10→17:25)
[2023-05-21 03:42] VITALS: BP 141/76
[2023-05-21 05:29] LABS: BASOPHILS % (AUTO) 0 % (0-10); EOSINOPHILS # (AUTO) 0.3 10^3/uL (0.0-0.3); EOSINOPHILS % (AUTO) 3 % (0-10); HEMATOCRIT 30 % (35-52); HEMOGLOBIN 10.1 g/dL (11.5-16.0); LYMPHOCYTES # (AUTO) 1.4 10^3/uL (1.0-4.0); LYMPHOCYTES % (AUTO) 13 % (12-44); MEAN CORPUSCULAR HEMOGLOBIN 29 pg (25-34); MEAN CORPUSCULAR HGB CONC 33 g/dL (32-36); MEAN CORPUSCULAR VOLUME 89 fL (80-99); MONOCYTES # (AUTO) 1.2 10^3/uL (0.0-1.0); MONOCYTES % (AUTO) 11 % (0-12); NEUTROPHILS # (AUTO) 7.8 10^3/uL (1.8-7.8); NEUTROPHILS % (AUTO) 73 % (42-75); PLATELET COUNT 186 10^3/uL (130-400); WHITE BLOOD COUNT 10.8 10^3/uL (4.3-11.0)
[2023-05-21 05:52] LABS: ALBUMIN 2.7 GM/DL (3.2-4.5); BILIRUBIN,TOTAL 0.8 MG/DL (0.1-1.0); CALCIUM 8.5 MG/DL (8.5-10.1); CREATININE SERUM 0.63 MG/DL (0.60-1.30); POTASSIUM 3.7 MMOL/L (3.6-5.0); TOTAL PROTEIN 5.2 GM/DL (6.4-8.2)
[2023-05-21] MEDS: ACETAMINOPHEN 325 MG TABLET PO PRN ×3 (06:28→17:25)
[2023-05-21 07:42] VITALS: BP 146/78
[2023-05-21] MEDS: SENNOSIDES 8.6 MG TABLET PO SCH ×2 (08:43→19:45)
[2023-05-21] MEDS: APIXABAN 2.5 MG TABLET PO SCH ×2 (08:43→19:46)
[2023-05-21] MEDS: DOCUSATE SODIUM 100 MG CAPSULE PO SCH ×2 (08:43→19:46)
--- NOTE | 2023-05-21 08:53 | Progress Note - Ortho ---
Progress Note Subjective Date of Exam 05/21/23 Chief Complaint POD #2 L Femoral Neck Fx s/p Prosthetic Replacement HPI/Events since last exam did not do well with therapy yesterday, doing better this AM, placement has been worked on Review of Systems - Allergies: Coded Allergies: hornet venom (Verified Allergy, Unknown, 05/19/23) mustard (Verified Allergy, Unknown, 05/19/23) yellow dye (Verified Allergy, Unknown, 05/19/23) Home Meds Reported Medications Acetaminophen (Tylenol Extra Strength) 500 Mg Tablet, 1000 MG PO Q8H PRN for PAIN-MILD (1-4), TAB 05/20/23 Lactulose (Lactulose) 10 Gram/15 Ml Solution, 15 ML PO BID, ML 05/20/23 Sertraline HCl (Sertraline HCl) 50 Mg Tablet, 50 MG PO DAILY, TAB 05/20/23 Olanzapine (Olanzapine) 5 Mg Tablet, 5 MG PO BID, TAB 05/20/23 Objective Exam L Hip: Dressing C/D/I, +DF of ankle, no s/s of DVT Vital Signs Vital Signs Date Time Temp Pulse Resp B/P (MAP) Pulse Ox O2 Delivery O2 Flow Rate FiO2 05/21/23 07:42 36.8 106 16 146/78 (100) 93 Nasal Cannula 1.00 05/21/23 07:10 Nasal Cannula 1.00 05/21/23 07:09 Nasal Cannula 1.00 05/21/23 07:05 95 Nasal Cannula 2.00 05/21/23 05:30 108 05/21/23 03:42 36.8 117 15 141/76 (97) 94 Nasal Cannula 2.00 2.00 05/20/23 23:26 36.7 107 15 139/87 (104) 94 Nasal Cannula 2.00 2.00 05/20/23 20:43 Nasal Cannula 2.00 05/20/23 19:29 36.5 108 15 130/72 (91) 95 Nasal Cannula 2.00 2.00 05/20/23 16:24 36.6 112 15 131/81 (98) 96 Nasal Cannula 2.00 05/20/23 11:22 37.0 100 16 138/77 (97) 93 Room Air I & O 05/21/23 07:00 Intake Total 750 ml Output Total 875 ml Balance -125 ml Lab Results Laboratory Tests 05/21/23 05:23: White Blood Count 10.8, Red Blood Count 3.43L, Hemoglobin 10.1L, Hematocrit 30L, Mean Corpuscular Volume 89, Mean Corpuscular Hemoglobin 29, Mean Corpuscular Hemoglobin Concent 33, Red Cell Distribution Width 15.1H, Platelet Count 186, Mean Platelet Volume 10.0, Immature Granulocyte % (Auto) 1, Neutrophils (%) (Auto) 73, Lymphocytes (%) (Auto) 13, Monocytes (%) (Auto) 11, Eosinophils (%) (Auto) 3, Basophils (%) (Auto) 0, Neutrophils # (Auto) 7.8, Lymphocytes # (Auto) 1.4, Monocytes # (Auto) 1.2H, Eosinophils # (Auto) 0.3, Basophils # (Auto) 0.0, Immature Granulocyte # (Auto) 0.1, Sodium Level 135, Potassium Level 3.7, Chloride Level 108H, Carbon Dioxide Level 20L, Anion Gap 7, Blood Urea Nitrogen 12, Creatinine 0.63, Estimat Glomerular Filtration Rate 91, BUN/Creatinine Ratio 19, Glucose Level 114H, Calcium Level 8.5, Corrected Calcium 9.5, Total Bilirubin 0.8, Aspartate Amino Transf (AST/SGOT) 24, Alanine Aminotransferase (ALT/SGPT) 18, Alkaline Phosphatase 86, Total Protein 5.2L, Albumin 2.7L Assessment and Plan Assessment L Femoral Neck Fx s/p Prosthetic Replacement Problem List L Femoral Neck Fx s/p Prosthetic Replacement Plan PT/OT DVT prophylaxis (on eliquis and will need for 35 days total) Agree with extended care placement Final Diagonsis L Femoral Neck Fx s/p Prosthetic Replacement Level of the visit: Level 3 (global) Clinical Quality Measures DVT/VTE Risk/Contraindication: Contraindications-Pharm: Other *list below* Other: or CAROLINA MATHUR MD May 21, 2023 08:53
--- NOTE | 2023-05-21 10:24 | Physical Therapy Daily Note ---
PT Daily Note-Current Subjective Patient lying supine in bed upon PT arrival, agreeable to treatment. Patient rates pain at 0/10 currently. Pain Section J - Health Conditions 1. Rarely or not at all 2. Occasionally 3. Frequently 4. Almost constantly 8. Unable to answer Pain Effect on Sleep: 8 Pain Interference with Therapy: 8 Pain Interference w/Day-to-Day: 8 Transfers SCALE: Activities may be completed with or without assistive devices. 5-Aubordjzsn-fphhhee completes the activity by him/herself with no assistance from a helper. 5-Set-up or Clean-up Assistance-helper sets up or cleans up; patient completes activity. [place] assists only prior to or following the activity. 4-Supervision or Touching Assistance-helper provides verbal cues and/or touching/steadying and/or contact guard assistance as patient completes activity. Assistance may be provided throughout the activity or intermittently. 3-Partial/Moderate Assistance-helper does LESS THAN HALF the effort. [place] li fts, holds or supports trunk or limbs, but provides less than half the effort. 2-Substantial/Maximal Assistance-helper does MORE THAN HALF the effort. [place] lifts or holds trunk or limbs and provides more than half the effort. 0-Tsxhorslj-bwxhwt does ALL the effort. Patient does none of the effort to complete the activity. Or, the assistance of 2 or more helpers is required for the patient to complete the activity. If activity was not attempted, code reason: 7-Patient Refused. 9-Not Applicable-not attempted and the patient did not perform the activity before the current illness, exacerbation or injury. 10-Not Attempted due to Environmental Limitations-(lack of equipment, weather restraints, etc.). 88-Not Attempted due to Medical Conditions or Safety Concerns. Roll Left & Right (QC): 3 Sit to Lying (QC): 3 Lying to Sitting/Side of Bed(Q: 3 Sit to Stand (QC): 3 Chair/Rhc-in-Tnzzz Xfer(QC): 4 Weight Bearing Right Lower Extremity: Right Full Weight Bearing Left Lower Extremity: Left Weight Bearing/Tolerated Posterior Dislocation Precautions Gait Training Does the Patient Walk?: Yes Distance: 50' Walk 10 feet (QC): 3 Walk 50 ft with 2 Turns(QC): 3 Gait Persons Needed: 1 Gait Assistive Device: FWW Assessment Current Status: Fair Progress Patient performs all bed mobility with min a and transfers with CGA/Min A. Patient ambulates 50 feet with FWW, with min a and verbal cues for safety, progression, gait pattern, distance to the FWW. Patient in chair post treatment with all needs met, nursing notified, call light in hand,and granddaughter in the room. PT Manager Home Healthcare Goals Manager Home Healthcare Goals PT Alf Goals Time Frame: Jun 14, 2023 Roll Left & Right (QC): 4 Sit to Lying (QC): 4 Lying-Sitting on Side/Bed(QC): 4 Sit to Stand (QC): 4 Chair/Qwh-lk-Yqgqy Xfer(QC): 4 Toilet Transfer (QC): 4 Does the Patient Walk: Yes Walk 10 feet (QC): 4 Walk 50ft with 2 Turns (QC): 4 Walk 150 ft (QC): 4 PT Plan Treatment/Plan Treatment Plan: Continue Plan of Care Treatment Plan: Bed Mobility, Education, Functional Activity Apple, Functional Strength, Group Therapy, Gait, Safety Treatment Duration: Jun 19, 2023 Frequency: 11 times per week Estimated Hrs Per Day: .25 hour per day Patient and/or Family Agrees t: Yes Safety Risks/Education Patient Education: Gait Training, Transfer Techniques Teaching Recipient: Patient, Family Teaching Methods: Demonstration, Discussion Response to Teaching: Reinforcement Needed Time Time In: 954 Time Out: 1020 DATE: May 21, 2023 Total Billed Treatment Time: 26 Total Billed Treatment Visit, GT (2) ERIN NELSON PT May 21, 2023 10:24
[2023-05-21 11:43] VITALS: BP 130/69
--- NOTE | 2023-05-21 12:01 | Progress Note ---
MISA PATEL 05/21/23 1201: Subjective Date Seen by a Provider: May 21, 2023 Time Seen by a Provider: 08:10 Subjective/Events-last exam Ms. Alonso is doing well today with minimal pain. She is accompanied by her granddaughter. She has been able to get up and walk to the toilet and have a bowel movement. She has also been using a walker in the hallway. She denies SOB, chest pain, headache, or dizziness today. Objective Exam Last Set of Vital Signs Vital Signs Date Time Temp Pulse Resp B/P (MAP) Pulse Ox O2 Delivery O2 Flow Rate FiO2 05/21/23 11:43 36.8 110 16 130/69 (89) 92 Room Air 05/21/23 08:00 1.00 Capillary Refill : Less Than 3 Seconds I&O Intake and Output 05/21/23 00:00 Intake Total 950 ml Output Total 875 ml Balance 75 ml Intake Oral 950 ml Output Urine Total 875 ml General: Alert, Oriented X3, Cooperative HEENT: Atraumatic Neck: Supple Lungs: Clear to Auscultation, Normal Air Movement Heart: Regular Rate Abdomen: Normal Bowel Sounds Extremities: No Edema, Normal Pulses Neuro: Normal Speech Psych/Mental Status: Mental Status NL Results Lab Laboratory Tests 05/21/23 05:23: White Blood Count 10.8, Red Blood Count 3.43L, Hemoglobin 10.1L, Hematocrit 30L, Mean Corpuscular Volume 89, Mean Corpuscular Hemoglobin 29, Mean Corpuscular Hemoglobin Concent 33, Red Cell Distribution Width 15.1H, Platelet Count 186, Mean Platelet Volume 10.0, Immature Granulocyte % (Auto) 1, Neutrophils (%) (Auto) 73, Lymphocytes (%) (Auto) 13, Monocytes (%) (Auto) 11, Eosinophils (%) (Auto) 3, Basophils (%) (Auto) 0, Neutrophils # (Auto) 7.8, Lymphocytes # (Auto) 1.4, Monocytes # (Auto) 1.2H, Eosinophils # (Auto) 0.3, Basophils # (Auto) 0.0, Immature Granulocyte # (Auto) 0.1, Sodium Level 135, Potassium Level 3.7, Chl oride Level 108H, Carbon Dioxide Level 20L, Anion Gap 7, Blood Urea Nitrogen 12, Creatinine 0.63, Estimat Glomerular Filtration Rate 91, BUN/Creatinine Ratio 19, Glucose Level 114H, Calcium Level 8.5, Corrected Calcium 9.5, Total Bilirubin 0.8, Aspartate Amino Transf (AST/SGOT) 24, Alanine Aminotransferase (ALT/SGPT) 18, Alkaline Phosphatase 86, Total Protein 5.2L, Albumin 2.7L Assessment/Plan Assessment/Plan Assess & Plan/Chief Complaint Assessment: Ms. Alonso is a 78 y/o female with left hip pain s/p hemiarthroplasty 05/19/23. Plan: Hip Pain -s/p hemiarthroplasty 05/19/23 -continue pain meds prn -Dr. Yi managing hip Dementia -supportive measures -monitor for changes Clinical Quality Measures DVT/VTE Risk/Contraindication: Contraindications-Pharm: Other *list below* Other: or ALLISON SEBASTIAN DO 05/21/23 2004: Subjective Subjective/Events-last exam Patient doing well Pain is controlled Awaiting skilled care with [facility] Objective Exam General: Alert, Cooperative Lungs: Clear to Auscultation Heart: Regular Rate Assessment/Plan Assessment/Plan Assess & Plan/Chief Complaint Await skilled care Supervisory-Addendum Brief Verification & Attestation Participated in pt care: history, MDM, physical Personally performed: exam, history, MDM, supervision of care Care discussed with: Medical Student Procedures: n/a Results interpretation: Verified all documentation Verification and Attestation of Medical Student E/M Service A medical student performed and documented this service in my presence. I reviewed and verified all information documented by the medical student and made modifications to such information, when appropriate. I personally performed the physical exam and medical decision making. Allison Sebastian, May 21, 2023,20:04 MISA PATEL May 21, 2023 12:01 ALLISON SEBASTIAN DO May 21, 2023 20:04
--- NOTE | 2023-05-21 13:55 | Occupational Ther Daily Note ---
OT Current Status-Daily Note Subjective Patient request shower, OT assisted by PCT for transfer and PAM precautions Mental Status/Objective Patient Orientation: Person, Situation Attachments: Macias Catheter, IV IV covered for shower. Dressings to LLE to be changed after shower ADL-Treatment Therapy Code Descriptions/Definitions Functional [place] Measure: 0=Not Assessed/NA 4=Minimal Assistance 1=Total Assistance 5=Supervision or Setup 2=Maximal Assistance 6=Modified [place] 3=Moderate Assistance 7=Complete IndependenceSCALE: Activities may be completed with or without assistive devices. 5-Wlhxtjwkgr-vnodfic completes the activity by him/herself with no assistance from a helper. 5-Set-up or Clean-up Assistance-helper sets up or cleans up; patient completes activity. [place] assists only prior to or following the activity. 4-Supervision or Touching Assistance-helper provides verbal cues and/or touching/steadying and/or contact guard assistance as patient completes activity. Assistance may be provided throughout the activity or intermittently. 3-Partial/Moderate Assistance-helper does LESS THAN HALF the effort. [place] lifts, holds or supports trunk or limbs, but provides less than half the effort. 2-Substantial/Maximal Assistance-helper does MORE THAN HALF the effort. [place] lifts or holds trunk or limbs and provides more than half the effort. 8-Uigphrafx-riztrw does ALL the effort. Patient does none of the effort to com plete the activity. Or, the assistance of 2 or more helpers is required for the patient to complete the activity. If activity was not attempted, code reason: 7-Patient Refused. 9-Not Applicable-not attempted and the patient did not perform the activity before the current illness, exacerbation or injury. 10-Not Attempted due to Environmental Limitations-(lack of equipment, weather restraints, etc.). 88-Not Attempted due to Medical Conditions or Safety Concerns. Shower/Bathe Self (QC): 1 Upper Body Dressing (QC): 3 Lower Body Dressing (QC): 1 (PCT and OT assist) On/Off Footwear: 2 Toileting Hygiene (QC): 1 (OT and PCT) Toilet Transfer (QC): 1 (2 person) Patient is confused w/ WBAT status Education OT Patient Education: Correct positioning, Modified ADL techniques, Progress toward Goal/Update tx plan, Purpose of tx/functional activities, Reviewed precautions, Rehab process, Safety issues, Transfer techniques Teaching Recipient: Patient, Family Teaching Methods: Demonstration, Discussion Response to Teaching: Return Demonstration, Reinforcement Needed OT Chcf Goals Tar Kettle Runner Goals Eating (QC): 5 Oral Hygiene (QC): 5 Toileting Hygiene (QC): 3 Shower/Bathe Self (QC): 3 Upper Body Dressing (QC): 3 Lower Body Dressing (QC): 3 On/Off Footwear (QC): 3 1=Demonstrate adherence to instructed precautions during ADL tasks. 2=Patient will verbalize/demonstrate understanding of assistive devices/modifications for ADL. 3=Patient will improve strength/tolerance for activity to enable patient to perform ADL's. OT Education/Plan Problem List/Assessment Assessment: Decreased Activ Tolerance, Decreased Safety Aware, Decreased UE Strength, Impaired Bed Mobility, Impaired Cognition, Impaired Coordination, Impaired Funct Balance, Impaired Self-Care Skills Discharge Recommendations Plan/Recommendations: Continue POC Therapy Discharge Recommendati: Post Acute OT Treatment Plan/Plan of Care Patient would benefit from OT for education, treatment and training to promote independence in ADL's, mobility, safety and/or upper extremity function for ADL's. Plan of Care: ADL Retraining, Cognitive Retraining, Concurrent Therapy, Functional Mobility, Group Exercise/Act as Ind, UE Funct Exercise/Act, UE Neuromus Re-Ed/Coord Treatment Duration: May 30, 2023 Frequency: 3 times per week (3-5 TIMES PER WEEK) Estimated Hrs Per Day: .25 hour per day Agreement: Yes Rehab Potential: Poor Time Start Time: 13:00 Stop Time: 13:30 DATE: May 21, 2023 Total Time Billed (hr/min): 30 Billed Treatment Time ADL 30 min ABA DONALD OT May 21, 2023 13:55
[2023-05-21 16:11] VITALS: BP 129/69
--- NOTE | 2023-05-21 16:20 | Physical Therapy Daily Note ---
PT Daily Note-Current Subjective Pt found seated in recliner upon entry. Agreed to PT. Reports that her hip is hurting but does not describe or rate. Pain Section J - Health Conditions 1. Rarely or not at all 2. Occasionally 3. Frequently 4. Almost constantly 8. Unable to answer Pain Effect on Sleep: 8 Pain Interference with Therapy: 8 Pain Interference w/Day-to-Day: 8 Mental Status Patient Orientation: Person Attachments: Macias Catheter, IV Transfers SCALE: Activities may be completed with or without assistive devices. 2-Nhgntewjos-yjhslex completes the activity by him/herself with no assistance from a helper. 5-Set-up or Clean-up Assistance-helper sets up or cleans up; patient completes activity. [place] assists only prior to or following the activity. 4-Supervision or Touching Assistance-helper provides verbal cues and/or touching/steadying and/or contact guard assistance as patient completes activity. Assistance may be provided throughout the activity or intermittently. 3-Partial/Moderate Assistance-helper does LESS THAN HALF the effort. [place] lifts, holds or supports trunk or limbs, but provides less than half the effort. 2-Substantial/Maximal Assistance-helper does MORE THAN HALF the effort. [place] lifts or holds trunk or limbs and provides more than half the effort. 9-Qpbivlfjr-bxzswt does ALL the effort. Patient does none of the effort to complete the activity. Or, the assistance of 2 or more helpers is required for the patient to complete the activity. If activity was not attempted, code reason: 7-Patient Refused. 9-Not Applicable-not attempted and the patient did not perform the activity before the current illness, exacerbation or injury. 10-Not Attempted due to Environmental Limitations-(lack of equipment, weather restraints, etc.). 88-Not Attempted due to Medical Conditions or Safety Concerns. Sit to Stand (QC): 3 Weight Bearing Right Lower Extremity: Right Full Weight Bearing Left Lower Extremity: Left Weight Bearing/Tolerated Posterior Dislocation Precautions Gait Training Does the Patient Walk?: Yes Distance: 80 Walk 10 feet (QC): 4 Walk 50 ft with 2 Turns(QC): 4 Gait Persons Needed: 1 Gait Assistive Device: FWW Assessment Current Status: Fair Progress Pt performs sit to stand from recliner /c MIN assist for lifting and verbal cues for correct hand placement. She ambulates /c use of FWW up to 80 feet. Required MIN assist for FWW turning and frequent verbal cues for increased stride length and neck posture. Pt left in recliner post-treatment /c family present, call light in place, and all needs met. Continue to progress pt per POC. PT Senior Care Goals Glass Artist Goals PT Glass Artist Goals Time Frame: Jun 14, 2023 Roll Left & Right (QC): 4 Sit to Lying (QC): 4 Lying-Sitting on Side/Bed(QC): 4 Sit to Stand (QC): 4 Chair/Xbx-gl-Zwlzt Xfer(QC): 4 Toilet Transfer (QC): 4 Does the Patient Walk: Yes Walk 10 feet (QC): 4 Walk 50ft with 2 Turns (QC): 4 Walk 150 ft (QC): 4 PT Plan Treatment/Plan Treatment Plan: Continue Plan of Care Treatment Plan: Bed Mobility, Education, Functional Activity Apple, Functional Strength, Group Therapy, Gait, Safety Treatment Duration: Jun 19, 2023 Frequency: 11 times per week Estimated Hrs Per Day: .25 hour per day Patient and/or Family Agrees t: Yes Time Time In: 1441 Time Out: 1505 DATE: May 21, 2023 Total Billed Treatment Time: 24 Total Billed Treatment 1 visit GT x 2 MAJOR,KHANH SECURITY OFFICER SUPERVISOR May 21, 2023 16:20
[2023-05-21] MEDS: oxyCODONE IMMEDIATE RELEASE 5 MG TABLET PO PRN (19:46)
[2023-05-21 19:47] VITALS: BP 136/71
[2023-05-21 23:01] VITALS: BP 112/72
[2023-05-22 03:28] VITALS: BP 150/89
[2023-05-22 04:58] LABS: BASOPHILS % (AUTO) 0 % (0-10); EOSINOPHILS # (AUTO) 0.4 10^3/uL (0.0-0.3); EOSINOPHILS % (AUTO) 4 % (0-10); HEMATOCRIT 28 % (35-52); HEMOGLOBIN 9.2 g/dL (11.5-16.0); LYMPHOCYTES # (AUTO) 1.4 10^3/uL (1.0-4.0); LYMPHOCYTES % (AUTO) 15 % (12-44); MEAN CORPUSCULAR HEMOGLOBIN 29 pg (25-34); MEAN CORPUSCULAR HGB CONC 32 g/dL (32-36); MEAN CORPUSCULAR VOLUME 89 fL (80-99); MEAN PLATELET VOLUME 10.2 fL (9.0-12.2); MONOCYTES # (AUTO) 0.9 10^3/uL (0.0-1.0); MONOCYTES % (AUTO) 10 % (0-12); NEUTROPHILS # (AUTO) 6.4 10^3/uL (1.8-7.8); NEUTROPHILS % (AUTO) 70 % (42-75); PLATELET COUNT 221 10^3/uL (130-400); WHITE BLOOD COUNT 9.1 10^3/uL (4.3-11.0)
[2023-05-22 05:14] LABS: ALBUMIN 2.6 GM/DL (3.2-4.5); BILIRUBIN,TOTAL 0.7 MG/DL (0.1-1.0); CALCIUM 8.4 MG/DL (8.5-10.1); CREATININE SERUM 0.6 MG/DL (0.60-1.30); POTASSIUM 3.7 MMOL/L (3.6-5.0)
[2023-05-22] MEDS: NS IV 1000 ML 1,000 ML IV SCH (06:03)
[2023-05-22 07:26] LABS: CLARITY,URINE CLOUDY; COLOR,URINE YELLOW
[2023-05-22 07:27] LABS: BACTERIA,URINE FEW /HPF; BILIRUBIN,URINE NEGATIVE (NEGATIVE); GLUCOSE, URINE (UA) NEGATIVE (NEGATIVE); KETONES,URINE NEGATIVE (NEGATIVE); LEUKOCYTE ESTERASE ,URINE NEGATIVE (NEGATIVE); NITRITE,URINE NEGATIVE (NEGATIVE); PROTEIN,URINE 1+ (NEGATIVE); RBC,URINE 0-2 /HPF; WBC,URINE 0-2 /HPF
[2023-05-22 07:37] VITALS: BP 160/74
[2023-05-22] MEDS: SENNOSIDES 8.6 MG TABLET PO SCH (08:00)
[2023-05-22] MEDS: APIXABAN 2.5 MG TABLET PO SCH (08:00)
[2023-05-22] MEDS: DOCUSATE SODIUM 100 MG CAPSULE PO SCH (08:00)
[2023-05-22] MEDS: ACETAMINOPHEN 325 MG TABLET PO PRN (08:01)
--- NOTE | 2023-05-22 09:00 | Progress Note - Ortho ---
Progress Note Subjective Date of Exam 05/22/23 Chief Complaint POD #3 L FN Fx s/p Prosthetic Replacement HPI/Events since last exam did better with therapy, pain controlled Review of Systems - Allergies: Coded Allergies: hornet venom (Verified Allergy, Unknown, 05/19/23) mustard (Verified Allergy, Unknown, 05/19/23) yellow dye (Verified Allergy, Unknown, 05/19/23) Home Meds Reported Medications Acetaminophen (Tylenol Extra Strength) 500 Mg Tablet, 1000 MG PO Q8H PRN for PAIN-MILD (1-4), TAB 05/20/23 Lactulose (Lactulose) 10 Gram/15 Ml Solution, 15 ML PO BID, ML 05/20/23 Sertraline HCl (Sertraline HCl) 50 Mg Tablet, 50 MG PO DAILY, TAB 05/20/23 Olanzapine (Olanzapine) 5 Mg Tablet, 5 MG PO BID, TAB 05/20/23 Objective Exam L Hip: Surgical dressing still in place and was peeled back, incision C/D/I, +DF of ankle, no s/s of DVT Vital Signs Vital Signs Date Time Temp Pulse Resp B/P (MAP) Pulse Ox O2 Delivery O2 Flow Rate FiO2 05/22/23 07:37 37.0 108 16 160/74 (102) 95 Room Air 05/22/23 03:28 36.8 110 18 150/89 (109) 96 Nasal Cannula 1.00 1.00 05/21/23 23:01 36.6 104 18 112/72 (85) 92 Nasal Cannula 1.00 05/21/23 22:10 Nasal Cannula 1.00 05/21/23 19:47 36.9 114 18 136/71 (92) 93 Room Air 05/21/23 19:46 Room Air 05/21/23 16:11 36.8 109 16 129/69 (89) 96 Room Air 05/21/23 11:43 36.8 110 16 130/69 (89) 92 Room Air I & O 05/22/23 07:00 Intake Total 2340 ml Output Total 1350 ml Balance 990 ml Lab Results Laboratory Tests 05/22/23 04:38: White Blood Count 9.1, Red Blood Count 3.18L, Hemoglobin 9.2L, Hematocrit 28L, Mean Corpuscular Volume 89, Mean Corpuscular Hemoglobin 29, Mean Corpuscular Hemoglobin Concent 32, Red Cell Distribution Width 15.0H, Platelet Count 221, Mean Platelet Volume 10.2, Immature Granulocyte % (Auto) 0, Neutrophils (%) (Auto) 70, Lymphocytes (%) (Auto) 15, Monocytes (%) (Auto) 10, Eosinophils (%) (Auto) 4, Basophils (%) (Auto) 0, Neutrophils # (Auto) 6.4, Lymphocytes # (Auto) 1.4, Monocytes # (Auto) 0.9, Eosinophils # (Auto) 0.4H, Basophils # (Auto) 0.0, Immature Granulocyte # (Auto) 0.0, Sodium Level 138, Potassium Level 3.7, Chloride Level 108H, Carbon Dioxide Level 23, Anion Gap 7, Blood Urea Nitrogen 13, Creatinine 0.60, Estimat Glomerular Filtration Rate 92, BUN/Creatinine Ratio 22, Glucose Level 102, Calcium Level 8.4L, Corrected Calcium 9.5, Total Bilirubin 0.7, Aspartate Amino Transf (AST/SGOT) 40H, Alanine Aminotransferase (ALT/SGPT) 36, Alkaline Phosphatase 98, Total Protein 5.0L, Albumin 2.6L 05/22/23 06:45: Urine Color YELLOW, Urine Clarity CLOUDY, Urine pH 6.0, Urine Specific [place] >=1.030, Urine Protein 1+H, Urine Glucose (UA) NEGATIVE, Urine Ketones NEGATIVE, Urine Nitrite NEGATIVE, Urine Bilirubin NEGATIVE, Urine Urobilinogen 2.0, Urine Leukocyte Esterase NEGATIVE, Urine RBC (Auto) TRACEH, Urine RBC 0-2, Urine WBC 0-2, Urine Squamous Epithelial Cells 2-5, Urine Crystals NONE, Urine Bacteria FEWH, Urine Casts NONE, Urine Mucus SMALLH, Urine Culture Indicated YES Assessment and Plan Assessment L FN Fx s/p Prosthetic Replacement Problem List L FN Fx s/p Prosthetic Replacement Plan Dressing change PT/OT DVT prophyalxis--apixaban 35 days total Final Diagonsis L FN Fx s/p Prosthetic Replacement Level of the visit: Level 3 (global) Clinical Quality Measures DVT/VTE Risk/Contraindication: Contraindications-Pharm: Other *list below* Other: or CARLOINA MATHUR MD May 22, 2023 09:00
[2023-05-22] MEDS ORDERED: OXC5T PO ×2 (10:15→11:04)
--- NOTE | 2023-05-22 10:18 | Discharge Inst-Skilled Nursing ---
KENDELL RICHARDS MD, RESIDENT 05/22/23 1018: Discharge Inst-Skilled NF Chief Complaint Chief complaint: Left hip fracture HPI: This is a 78-year-old female known to me from [facility] psych unit in 07/11 who resides at [facility] who suffered a left hip fracture and a fall at home. She is n.p.o. and will have repair today. She reports no pain as long as she does not move. Patient Instructions Patient Problems: left hip pain s/p hemiarthroplasty 05/19/23, dementia Goal: Walking and ability to do ADLs Consult/Follow Up/Orders Skilled NF Admit to: [facility] ([facility]) I certify that SNF services are required to be given on an inpatient basis because of the above named patient's need for [facility]p care on a continuing basis for the conditions(s) for which he/she was receiving inpatient hospital services prior to his/her transfer to the [facility]. [facility] Facility Order: Nursing Services, Still Worker Helper-Evaluate & Treat, Physical Therapy-Evaluate & Treat Oxygen Delivery Method: Room Air Discharge Diet: No Restrictions Daily Activity as Tolerated: Yes Resuscitation Status: Do Not Resuscitate New & Resume Previous Orders New Medications: Apixaban (Eliquis) 2.5 Mg Tablet 2.5 MG PO BID for 35 Days, #70 TAB Continued Medications: Acetaminophen (Tylenol Extra Strength) 500 Mg Tablet 1000 MG PO Q8H PRN for PAIN-MILD (1-4) for 30 Days, #30 TAB (This prescription has been renewed) Lactulose (Lactulose) 10 Gram/15 Ml Solution 15 ML PO BID for 30 Days, #15 ML (This prescription has been renewed) Olanzapine (Olanzapine) 5 Mg Tablet 5 MG PO BID for 30 Days, #30 TAB (This prescription has been renewed) Sertraline HCl (Sertraline HCl) 50 Mg Tablet 50 MG PO DAILY for 30 Days, #30 TAB (This prescription has been renewed) Kendell Richards May 22, 2023 10:17 DIANE SEBASTIAN DO 05/22/232042: Discharge Inst-Skilled NF Reconcile Patient Problems Problems Reviewed?: Yes Consult/Follow Up/Orders Skilled NF Admit to: [facility] Nursing Facility Order: Nursing Services, Still Worker Helper-Evaluate & Treat, Physical Therapy-Evaluate & Treat KENDELL RICHARDS MD, RESIDENT May 22, 2023 10:18 DIANE SEBASTIAN DO May 22, 2023 20:43
[2023-05-22] MEDS ORDERED: APIX2.5T PO (10:20)
[2023-05-22] MEDS ORDERED: SERT-413 PO (10:22)
[2023-05-22] MEDS ORDERED: ACET-2267 PO (10:22)
[2023-05-22] MEDS ORDERED: OLN5T PO (10:22)
[2023-05-22] MEDS ORDERED: LACT10SO3 PO (10:22)
--- NOTE | 2023-05-22 10:58 | Physical Therapy Daily Note ---
PT Daily Note-Current Subjective Patient sitting in chair upon PT arrival, agreeable to treatment. Rates pain at 8/10 currently. Pain Section J - Health Conditions 1. Rarely or not at all 2. Occasionally 3. Frequently 4. Almost constantly 8. Unable to answer Pain Effect on Sleep: 8 Pain Interference with Therapy: 8 Pain Interference w/Day-to-Day: 8 Transfers SCALE: Activities may be completed with or without assistive devices. 3-Dmmqzbffae-npxpisy completes the activity by him/herself with no assistance from a helper. 5-Set-up or Clean-up Assistance-helper sets up or cleans up; patient completes activity. [place] assists only prior to or following the activity. 4-Supervision or Touching Assistance-helper provides verbal cues and/or touching/steadying and/or contact guard assistance as patient completes activity. Assistance may be provided throughout the activity or intermittently. 3-Partial/Moderate Assistance-helper does LESS THAN HALF the effort. [place] lifts, holds or supports trunk or limbs, but provides less than half the effort. 2-Substantial/Maximal Assistance-helper does MORE THAN HALF the effort. [place] lifts or holds trunk or limbs and provides more than half the effort. 7-Iugcupisd-lzghij does ALL the effort. Patient does none of the effort to complete the activity. Or, the assistance of 2 or more helpers is required for the patient to complete the activity. If activity was not attempted, code reason: 7-Patient Refused. 9-Not Applicable-not attempted and the patient did not perform the activity before the current illness, exacerbation or injury. 10-Not Attempted due to Environmental Limitations-(lack of equipment, weather restraints, etc.). 88-Not Attempted due to Medical Conditions or Safety Concerns. Sit to Stand (QC): 3 Chair/Gns-ke-Cqtnm Xfer(QC): 3 Weight Bearing Right Lower Extremity: Right Full Weight Bearing Left Lower Extremity: Left Weight Bearing/Tolerated Posterior Dislocation Precautions Gait Training Does the Patient Walk?: Yes Distance: 100' Walk 10 feet (QC): 3 Walk 50 ft with 2 Turns(QC): 3 Gait Persons Needed: 2 Gait Assistive Device: FWW Daughter pushed IV pole. Assessment Current Status: Good Progress Patient performs all transfers with CGA/Min A. Patient ambulates 100 feet with FWW, with min a and verbal cues for safety, progression, gait pattern, distance to the FWW. Patient in chair post treatment with all needs met, nursing notified, call light in hand,and daughter in the room. PT Alf Goals Project Designer Goals PT Project Designer Goals Time Frame: Jun 14, 2023 Roll Left & Right (QC): 4 Sit to Lying (QC): 4 Lying-Sitting on Side/Bed(QC): 4 Sit to Stand (QC): 4 Chair/Qvi-jq-Fcupf Xfer(QC): 4 Toilet Transfer (QC): 4 Does the Patient Walk: Yes Walk 10 feet (QC): 4 Walk 50ft with 2 Turns (QC): 4 Walk 150 ft (QC): 4 PT Plan Treatment/Plan Treatment Plan: Continue Plan of Care Treatment Plan: Bed Mobility, Education, Functional Activity Apple, Functional Strength, Group Therapy, Gait, Safety Treatment Duration: Jun 19, 2023 Frequency: 11 times per week Estimated Hrs Per Day: .25 hour per day Patient and/or Family Agrees t: Yes Safety Risks/Education Patient Education: Gait Training, Transfer Techniques Teaching Recipient: Patient, Family Teaching Methods: Demonstration, Discussion Response to Teaching: Reinforcement Needed Time Time In: 955 Time Out: 1010 DATE: May 22, 2023 Total Billed Treatment Time: 15 Total Billed Treatment Visit, GT ERIN NELSON PT May 22, 2023 10:58
--- NOTE | 2023-05-22 11:01 | Occupational Ther Daily Note ---
OT Current Status-Daily Note Subjective UP with PT in halls, OT assisted w/ FWW navigation to recliner and PAM precautions Pain Numeric Pain Scale: 5-Moderate Pain Location Body Site: Knee (and hip) Mental Status/Objective Patient Orientation: Person ADL-Treatment INTRODUCTION to DRESSING TOOLS, minimal carryover Therapy Code Descriptions/Definitions Functional [place] Measure: 0=Not Assessed/NA 4=Minimal Assistance 1=Total Assistance 5=Supervision or Setup 2=Maximal Assistance 6=Modified [place] 3=Moderate Assistance 7=Complete IndependenceSCALE: Activities may be completed with or without assistive devices. 2-Dptijuzilb-wyblqfh completes the activity by him/herself with no assistance from a helper. 5-Set-up or Clean-up Assistance-helper sets up or cleans up; patient completes activity. [place] assists only prior to or following the activity. 4-Supervision or Touching Assistance-helper provides verbal cues and/or touching/steadying and/or contact guard assistance as patient completes act ivity. Assistance may be provided throughout the activity or intermittently. 3-Partial/Moderate Assistance-helper does LESS THAN HALF the effort. [place] lifts, holds or supports trunk or limbs, but provides less than half the effort. 2-Substantial/Maximal Assistance-helper does MORE THAN HALF the effort. [place] lifts or holds trunk or limbs and provides more than half the effort. 0-Repebwdnv-lkktbl does ALL the effort. Patient does none of the effort to complete the activity. Or, the assistance of 2 or more helpers is required for the patient to complete the activity. If activity was not attempted, code reason: 7-Patient Refused. 9-Not Applicable-not attempted and the patient did not perform the activity before the current illness, exacerbation or injury. 10-Not Attempted due to Environmental Limitations-(lack of equipment, weather restraints, etc.). 88-Not Attempted due to Medical Conditions or Safety Concerns. Eating (QC): 5 Oral Hygiene (QC): 4 Upper Body Dressing (QC): 4 Lower Body Dressing (QC): 2 (Transfer min assist, following directions w/ tools for PAM precaution required max assist) On/Off Footwear: 2 Toileting Hygiene (QC): 3 Toilet Transfer (QC): 3 Education OT Patient Education: Correct positioning, Modified ADL techniques, Progress toward Goal/Update tx plan, Purpose of tx/functional activities, Reviewed precautions, Rehab process, Safety issues, Transfer techniques, Use of adapted equipment Teaching Recipient: Patient, Family Teaching Methods: Demonstration, Discussion Response to Teaching: Reinforcement Needed OT Fpc Goals Fpc Goals Eating (QC): 5 Oral Hygiene (QC): 5 Toileting Hygiene (QC): 3 Shower/Bathe Self (QC): 3 Upper Body Dressing (QC): 3 Lower Body Dressing (QC): 3 On/Off Footwear (QC): 3 1=Demonstrate adherence to instructed precautions during ADL tasks. 2=Patient will verbalize/demonstrate understanding of assistive devices/modifications for ADL. 3=Patient will improve strength/tolerance for activity to enable patient to perform ADL's. OT Education/Plan Problem List/Assessment Assessment: Decreased Activ Tolerance, Decreased Safety Aware, Decreased UE Strength, Impaired Cognition, Impaired Coordination, Impaired Funct Balance, Impaired Self-Care Skills, Restricted Funct UE ROM Discharge Recommendations Plan/Recommendations: Continue POC Therapy Discharge Recommendati: Post Acute OT Equpiment Recommendations-D/C: Hip Kit (pending comprehension) Treatment Plan/Plan of Care Treatment,Training & Education: Yes Patient would benefit from OT for education, treatment and training to promote independence in ADL's, mobility, safety and/or upper extremity function for ADL's. Plan of Care: ADL Retraining, Cognitive Retraining, Concurrent Therapy, Functional Mobility, Group Exercise/Act as Ind, UE Funct Exercise/Act, UE Neuromus Re-Ed/Coord Treatment Duration: May 30, 2023 Frequency: 3 times per week (3-5 TIMES PER WEEK) Estimated Hrs Per Day: .25 hour per day Agreement: Yes Rehab Potential: Poor Remains in recliner, call light in reach, family present, all needs met Time Start Time: 09:50 Stop Time: 10:07 DATE: May 22, 2023 Total Time Billed (hr/min): 17 Billed Treatment Time ADL 17 min ABA DONALD OT May 22, 2023 11:01
--- NOTE | 2023-05-22 11:05 | Discharge Summary ---
Diagnosis/Chief Complaint Date of Admission May 19, 2023 at 11:17 Date of Discharge Discharge Diagnosis Left hip fracture Dementia Postop acute blood loss anemia Discharge Summary Discharge Physical Examination Allergies: Coded Allergies: hornet venom (Verified Allergy, Unknown, 05/19/23) mustard (Verified Allergy, Unknown, 05/19/23) yellow dye (Verified Allergy, Unknown, 05/19/23) Vitals & I&Os Vital Signs Date Time Temp Pulse Resp B/P (MAP) Pulse Ox O2 Delivery O2 Flow Rate FiO2 05/22/23 12:30 05/22/23 11:33 36.7 105 16 98 Room Air 05/22/23 03:28 1.00 1.00 General Appearance: Alert, Cooperative Respiratory: Clear to Auscultation Cardiovascular: Regular Rate Hospital Course Was the Problem List Reviewed?: Yes Ms. Alonso is a 78 y/o female w/ PMH dementia presenting for left hip pain 05/19. XR hip showed displaced femoral neck fracture. Dr. Yi performed L hemiarthroplasty 05/19. Following surgery, patient was admitted to fourth floor. She has been doing well, with pain adequately controlled. Macias catheter was removed 05/21 and patient was unable to void since then. She was subsequently bladder scanned and straight cathed. A UA was collected. She has been able to get up and walk using a walker, and had a small bowel movement last night. She denies any nausea/vomiting today, and has had small bites of her breakfast. She had complaints of scalp buildup today, and was prescribed ketaconazole. She will be going to [facility]. Labs (last 24 hrs) Laboratory Tests 05/19/23 10:00: White Blood Count 8.4, Red Blood Count 4.52, Hemoglobin 13.2, Hematocrit 40, Mean Corpuscular Volume 89, Mean Corpuscular Hemoglobin 29, Mean Corpuscular Hemoglobin Concent 33, Red Cell Distribution Width 14.9H, Platelet Count 230, Mean Platelet Volume 10.0, Immature Granulocyte % (Auto) 1, Neutrophils (%) (Auto) 72, Lymphocytes (%) (Auto) 14, Monocytes (%) (Auto) 11, Eosinophils (%) (Auto) 2, Basophils (%) (Auto) 0, Neutrophils # (Auto) 6.1, Lymphocytes # (Auto) 1.2, Monocytes # (Auto) 0.9, Eosinophils # (Auto) 0.2, Basophils # (Auto) 0.0, Immature Granulocyte # (Auto) 0.0, Sodium Level 141, Potassium Level 3.4L, Chloride Level 109H, Carbon Dioxide Level 19L, Anion Gap 13, Blood Urea Nitrogen 12, Creatinine 0.75, Estimat Glomerular Filtration Rate 81, BUN/Creatinine Ratio 16, Glucose Level 114H, Calcium Level 9.2 05/20/23 05:29: White Blood Count 10.3, Red Blood Count 3.67L, Hemoglobin 10.7L, Hematocrit 32L, Mean Corpuscular Volume 88, Mean Corpuscular Hemoglobin 29, Mean Corpuscular Hemoglobin Concent 33, Red Cell Distribution Width 14.8H, Platelet Count 176, Mean Platelet Volume 10.6, Immature Granulocyte % (Auto) 0, Neutrophils (%) (Auto) 79H, Lymphocytes (%) (Auto) 8L, Monocytes (%) (Auto) 11, Eosinophils (%) (Auto) 1, Basophils (%) (Auto) 0, Neutrophils # (Auto) 8.2H, Lymphocytes # (Auto) 0.8L, Monocytes # (Auto) 1.1H, Eosinophils # (Auto) 0.1, Basophils # (Auto) 0.0, Immature Granulocyte # (Auto) 0.0, Sodium Level 137, Potassium Level 4.3, Chloride Level 108H, Carbon Dioxide Level 20L, Anion Gap 9, Blood Urea Nitrogen 12, Creatinine 0.76, Estimat Glomerular Filtration Rate 80, BUN/Creatinine Ratio 16, Glucose Level 132H, Calcium Level 8.3L, Neutrophils % (Manual) 84, Lymphocytes % (Manual) 8, Monocytes % (Manual) 5, Eosinophils % (Manual) 2, Basophils % (Manual) 1, Blood Morphology Comment NORMAL, Corrected Calcium 9.2, Total Bilirubin 0.7, Aspartate Amino Transf (AST/SGOT) 30, Alanine Aminotransferase (ALT/SGPT) 23, Alkaline Phosphatase 80, Total Protein 5.9L, Albumin 2.9L 05/21/23 05:23: White Blood Count 10.8, Red Blood Count 3.43L, Hemoglobin 10.1L, Hematocrit 30L, Mean Corpuscular Volume 89, Mean Corpuscular Hemoglobin 29, Mean Corpuscular Hemoglobin Concent 33, Red Cell Distribution Width 15.1H, Platelet Count 186, Mean Platelet Volume 10.0, Immature Granulocyte % (Auto) 1, Neutrophils (%) (Auto) 73, Lymphocytes (%) (Auto) 13, Monocytes (%) (Auto) 11, Eosinophils (%) (Auto) 3, Basophils (%) (Auto) 0, Neutrophils # (Auto) 7.8, Lymphocytes # (Auto) 1.4, Monocytes # (Auto) 1.2H, Eosinophils # (Auto) 0.3, Basophils # (Auto) 0.0, Immature Granulocyte # (Auto) 0.1, Sodium Level 135, Potassium Level 3.7, Chloride Level 108H, Carbon Dioxide Level 20L, Anion Gap 7, Blood Urea Nitrogen 12, Creatinine 0.63, Estimat Glomerular Filtration Rate 91, BUN/Creatinine Ratio 19, Glucose Level 114H, Calcium Level 8.5, Corrected Calcium 9.5, Total Bilirubin 0.8, Aspartate Amino Transf (AST/SGOT) 24, Alanine Aminotransferase (ALT/SGPT) 18, Alkaline Phosphatase 86, Total Protein 5.2L, Albumin 2.7L 05/22/23 04:38: White Blood Count 9.1, Red Blood Count 3.18L, Hemoglobin 9.2L, Hematocrit 28L, Mean Corpuscular Volume 89, Mean Corpuscular Hemoglobin 29, Mean Corpuscular Hemoglobin Concent 32, Red Cell Distribution Width 15.0H, Platelet Count 221, Mean Platelet Volume 10.2, Immature Granulocyte % (Auto) 0, Neutrophils (%) (Auto) 70, Lymphocytes (%) (Auto) 15, Monocytes (%) (Auto) 10, Eosinophils (%) (Auto) 4, Basophils (%) (Auto) 0, Neutrophils # (Auto) 6.4, Lymphocytes # (Auto) 1.4, Monocytes # (Auto) 0.9, Eosinophils # (Auto) 0.4H, Basophils # (Auto) 0.0, Immature Granulocyte # (Auto) 0.0, Sodium Level 138, Potassium Level 3.7, Chloride Level 108H, Carbon Dioxide Level 23, Anion Gap 7, Blood Urea Nitrogen 13, Creatinine 0.60, Estimat Glomerular Filtration Rate 92, BUN/Creatinine Ratio 22, Glucose Level 102, Calcium Level 8.4L, Corrected Calcium 9.5, Total Bilirubin 0.7, Aspartate Amino Transf (AST/SGOT) 40H, Alanine Aminotransferase (ALT/SGPT) 36, Alkaline Phosphatase 98, Total Protein 5.0L, Albumin 2.6L 05/22/23 06:45: Urine Color YELLOW, Urine Clarity CLOUDY, Urine pH 6.0, Urine Specific [place] >=1.030, Urine Protein 1+H, Urine Glucose (UA) NEGATIVE, Urine Ketones NEGATIVE, Urine Nitrite NEGATIVE, Urine Bilirubin NEGATIVE, Urine Urobilinogen 2.0, Urine Leukocyte Esterase NEGATIVE, Urine RBC (Auto) TRACEH, Urine RBC 0-2, Urine WBC 0-2, Urine Squamous Epithelial Cells 2-5, Urine Crystals NONE, Urine Bacteria FEWH, Urine Casts NONE, Urine Mucus SMALLH, Urine Culture Indicated YES Pending Labs Laboratory Tests 05/19/23 10:00: White Blood Count 8.4, Red Blood Count 4.52, Hemoglobin 13.2, Hematocrit 40, Mean Corpuscular Volume 89, Mean Corpuscular Hemoglobin 29, Mean Corpuscular Hemoglobin Concent 33, Red Cell Distribution Width 14.9, Platelet Count 230, Mean Platelet Volume 10.0, Immature Granulocyte % (Auto) 1, Neutrophils (%) (Auto) 72, Lymphocytes (%) (Auto) 14, Monocytes (%) (Auto) 11, Eosinophils (%) (Auto) 2, Basophils (%) (Auto) 0, Neutrophils # (Auto) 6.1, Lymphocytes # (Auto) 1.2, Monocytes # (Auto) 0.9, Eosinophils # (Auto) 0.2, Basophils # (Auto) 0.0, Immature Granulocyte # (Auto) 0.0, Sodium Level 141, Potassium Level 3.4, Chloride Level 109, Carbon Dioxide Level 19, Anion Gap 13, Blood Urea Nitrogen 12, Creatinine 0.75, Estimat Glomerular Filtration Rate 81, BUN/Creatinine Ratio 16, Glucose Level 114, Calcium Level 9.2 05/20/23 05:29: White Blood Count 10.3, Red Blood Count 3.67, Hemoglobin 10.7, Hematocrit 32, Mean Corpuscular Volume 88, Mean Corpuscular Hemoglobin 29, Mean Corpuscular Hemoglobin Concent 33, Red Cell Distribution Width 14.8, Platelet Count 176, Mean Platelet Volume 10.6, Immature Granulocyte % (Auto) 0, Neutrophils (%) (Auto) 79, Lymphocytes (%) (Auto) 8, Monocytes (%) (Auto) 11, Eosinophils (%) (Auto) 1, Basophils (%) (Auto) 0, Neutrophils # (Auto) 8.2, Lymphocytes # (Auto) 0.8, Monocytes # (Auto) 1.1, Eosinophils # (Auto) 0.1, Basophils # (Auto) 0.0, Immature Granulocyte # (Auto) 0.0, Sodium Level 137, Potassium Level 4.3, Chloride Level 108, Carbon Dioxide Level 20, Anion Gap 9, Blood Urea Nitrogen 12, Creatinine 0.76, Estimat Glomerular Filtration Rate 80, BUN/Creatinine Ratio 16, Glucose Level 132, Calcium Level 8.3, Neutrophils % (Manual) 84, Lymphocytes % (Manual) 8, Monocytes % (Manual) 5, Eosinophils % (Manual) 2, Basophils % (Manual) 1, Blood Morphology Comment NORMAL, Corrected Calcium 9.2, Total Bilirubin 0.7, Aspartate Amino Transf (AST/SGOT) 30, Alanine Aminotransferase (ALT/SGPT) 23, Alkaline Phosphatase 80, Total Protein 5.9, Albumin 2.9 05/21/23 05:23: White Blood Count 10.8, Red Blood Count 3.43, Hemoglobin 10.1, Hematocrit 30, Mean Corpuscular Volume 89, Mean Corpuscular Hemoglobin 29, Mean Corpuscular Hemoglobin Concent 33, Red Cell Distribution Width 15.1, Platelet Count 186, Mean Platelet Volume 10.0, Immature Granulocyte % (Auto) 1, Neutrophils (%) (Auto) 73, Lymphocytes (%) (Auto) 13, Monocytes (%) (Auto) 11, Eosinophils (%) (Auto) 3, Basophils (%) (Auto) 0, Neutrophils # (Auto) 7.8, Lymphocytes # (Auto) 1.4, Monocytes # (Auto) 1.2, Eosinophils # (Auto) 0.3, Basophils # (Auto) 0.0, Immature Granulocyte # (Auto) 0.1, Sodium Level 135, Potassium Level 3.7, Chloride Level 108, Carbon Dioxide Level 20, Anion Gap 7, Blood Urea Nitrogen 12, Creatinine 0.63, Estimat Glomerular Filtration Rate 91, BUN/Creatinine Ratio 19, Glucose Level 114, Calcium Level 8.5, Corrected Calcium 9.5, Total Bilirubin 0.8, Aspartate Amino Transf (AST/SGOT) 24, Alanine Aminotransferase (ALT/SGPT) 18, Alkaline Phosphatase 86, Total Protein 5.2, Albumin 2.7 05/22/23 04:38: White Blood Count 9.1, Red Blood Count 3.18, Hemoglobin 9.2, Hematocrit 28, Mean Corpuscular Volume 89, Mean Corpuscular Hemoglobin 29, Mean Corpuscular Hemoglobin Concent 32, Red Cell Distribution Width 15.0, Platelet Count 221, Mean Platelet Volume 10.2, Immature Granulocyte % (Auto) 0, Neutrophils (%) (Auto) 70, Lymphocytes (%) (Auto) 15, Monocytes (%) (Auto) 10, Eosinophils (%) (Auto) 4, Basophils (%) (Auto) 0, Neutrophils # (Auto) 6.4, Lymphocytes # (Auto) 1.4, Monocytes # (Auto) 0.9, Eosinophils # (Auto) 0.4, Basophils # (Auto) 0.0, Immature Granulocyte # (Auto) 0.0, Sodium Level 138, Potassium Level 3.7, Chloride Level 108, Carbon Dioxide Level 23, Anion Gap 7, Blood Urea Nitrogen 13, Creatinine 0.60, Estimat Glomerular Filtration Rate 92, BUN/Creatinine Ratio 22, Glucose Level 102, Calcium Level 8.4, Corrected Calcium 9.5, Total Bilirubin 0.7, Aspartate Amino Transf (AST/SGOT) 40, Alanine Aminotransferase (ALT/SGPT) 36, Alkaline Phosphatase 98, Total Protein 5.0, Albumin 2.6 05/22/23 06:45: Urine Color YELLOW, Urine Clarity CLOUDY, Urine pH 6.0, Urine Specific [place] >=1.030, Urine Protein 1+, Urine Glucose (UA) NEGATIVE, Urine Ketones NEGATIVE, Urine Nitrite NEGATIVE, Urine Bilirubin NEGATIVE, Urine Urobilinogen 2.0, Urine Leukocyte Esterase NEGATIVE, Urine RBC (Auto) TRACE, Urine RBC 0-2, Urine WBC 0- 2, Urine Squamous Epithelial Cells 2-5, Urine Crystals NONE, Urine Bacteria FEW, Urine Casts NONE, Urine Mucus SMALL, Urine Culture Indicated YES Discharge Home Medications: Active Scripts Active Ketoconazole 2 % Shampoo 120 Ml TP EVERY OTHER DAY 14 Days Oxyir Tablet (Oxycodone HCl) 5 Mg Tab 5 Mg PO Q4HR PRN Tylenol Extra Strength (Acetaminophen) 500 Mg Tablet 1,000 Mg PO Q8H PRN 30 Days Lactulose 10 Gram/15 Ml Solution 15 Ml PO BID 30 Days Sertraline HCl 50 Mg Tablet 50 Mg PO DAILY 30 Days Olanzapine 5 Mg Tablet 5 Mg PO BID 30 Days Eliquis (Apixaban) 2.5 Mg Tablet 2.5 Mg PO BID 35 Days Instructions to patient/family Please see electronic discharge instructions given to patient. Clinical Quality Measures DVT/VTE Risk/Contraindication: Contraindications-Pharm: Other *list below* Other: or DIANE SEBASTIAN DO May 22, 2023 11:05
[2023-05-22 11:33] VITALS: BP 150/91
[2023-05-22] MEDS ORDERED: KETO120S13 TP (12:35)
--- NOTE | 2023-05-22 12:48 | Progress Note ---
MISA PATEL 05/22/23 1247: Progress Note Ms. Alonso is a 78 y/o female w/ PMH dementia presenting for left hip pain 05/19. XR hip showed displaced femoral neck fracture. Dr. Yi performed L hemiarthroplasty 05/19. Following surgery, patient was admitted to fourth floor. She has been doing well, with pain adequately controlled. Macias catheter was removed 05/21 and patient was unable to void since then. She was subsequently bladder scanned and straight cathed. A UA was collected. She has been able to get up and walk using a walker, and had a small bowel movement last night. She denies any nausea/vomiting today, and has had small bites of her breakfast. She had complaints of scalp buildup today, and was prescribed ketaconazole. She will be going to [facility]. ALLISON SEBASTIAN DO 05/22/232054: Supervisory-Addendum Brief Verification & Attestation Participated in pt care: history, MDM, physical Personally performed: exam, history, MDM, supervision of care Care discussed with: Medical Student Procedures: n/a Results interpretation: Verified all documentation Verification and Attestation of Medical Student E/M Service A medical student performed and documented this service in my presence. I reviewed and verified all information documented by the medical student and made modifications to such information, when appropriate. I personally performed the physical exam and medical decision making. Allison Sebastian, May 22, 2023,20:55 MISA PATEL May 22, 2023 12:47 ALLISON SEBASTIAN DO May 22, 2023 20:55
== END 2023-05-22 12:35 | DRG 522 ==
LOC: EDUNIT# 09:12 → ER 09:14 → 4TH 11:17
PROVIDERS: ADMIT Internal Medicine; ATTEND Internal Medicine
PROC: 0SRS0JZ Replacement of Left Hip Joint, Femoral Surface with Synthetic Substitute, Open Approach (ICD-10-PCS; principal; 2023-05-19 13:19)
DX: S72.002A Fracture of unspecified part of neck of left femur, initial encounter for closed fracture (principal); D62 Acute posthemorrhagic anemia; Z66 Do not resuscitate; W19.XXXA Unspecified fall, initial encounter; Y92.099 Unspecified place in other non-institutional residence as the place of occurrence of the external cause; F03.90 Unspecified dementia, unspecified severity, without behavioral disturbance, psychotic disturbance, mood disturbance, and anxiety; F32.A Depression, unspecified
CPT/HCPCS: 36415; 51702; 71045; 72170; 80048; 80053; 81000; 85007; 85025; 85027; 87088; 93005; 94664; 94760

== ENCOUNTER → 2023-06-19 | Outpatient (CLI) | payer MEDICARE ==
[~2023-06-19] MED LIST: ACET-2267 PO; APIX2.5T PO; KETO120S13 TP; LACT10SO3 PO; OLN5T PO; OXC5T PO; SERT-413 PO
--- NOTE | 2023-06-19 14:24 | Diagnostic Imaging Report ---
HISTORY: Postoperative left hip. TECHNIQUE: 2 views of the left hip. COMPARISON: 05/19/2023 FINDINGS: There is a left hip hemiarthroplasty. Alignment appears normal. No hardware complication is seen. No acute fracture seen about the left hip although bone density appears diffusely low. There is marked stool in the rectum. IMPRESSION: 1. Left hip arthroplasty with no hardware complication seen. 2. Marked stool at the rectum, please correlate with history of constipation. Dictated by: Dictated on workstation # [id number]
== END ==
LOC: ORTHO 09:12
PROVIDERS: ATTEND Orthopaedic Surgery
DX: Z09 Encounter for follow-up examination after completed treatment for conditions other than malignant neoplasm (principal); Z96.642 Presence of left artificial hip joint
CPT/HCPCS: 73502